=== PATIENT | female | born 1945 | race Native Hawaiian/Other Pacific Islander ===

== ENCOUNTER 2016-10-17 14:32 | Observation (INO) | payer OTHER ==
[2016-10-17 15:00] VITALS: BMI 21.2
--- NOTE | 2016-10-17 15:09 | ED PDOC ---
Arrival/HPI - General Chief Complaint: Chest Pain Time Seen by Provider: 10/17/16 15:08 - History of Present Illness Narrative History of Present Illness (Text): 10/17/16 15:08 Patient is a 71 y/o F with HTN, ESRD on HD, monday and monday, presenting with chest pain. Patient reports that today she had acute onset of chest pressure that lasted 1 hour. She reports that at that time her breathing was difficult. Reports recent travel from [facility]. Denies prior stress test. Past Medical History - Infectious Disease Hx of Infectious Diseases: None - Cardiac Hx Hypertension: Yes - Renal Hx Dialysis: Yes Type of Dialysis Access: R chest [place] Date of Last Dialysis Treatment: 10/14/16 - Psychiatric Hx Substance Use: No - Surgical History Other/Comment: R chest [place] - Anesthesia Hx Anesthesia: Yes Hx Anesthesia Reactions: No Hx Malignant Hyperthermia: No Family/Social History Family/Social History: No Known Family HX Smoking Status: Current Some Days Smoker Hx Alcohol Use: No Hx Substance Use: No Allergies/Home Meds Allergies/Adverse Reactions: Allergies No Known Allergies Allergy (Verified 10/17/16 15:00) Home Medications: Home Meds Medication Instructions Recorded Confirmed Atorvastatin [Lipitor] 1 tab PO HS 10/17/16 10/17/16 Clopidogrel [Plavix] 1 tab PO DAILY 10/17/16 10/17/16 Furosemide [Lasix] 1 tab PO BID 10/17/16 10/17/16 Metoprolol Tartrate [Lopressor] 1 tab PO HS 10/17/16 10/17/16 amLODIPine [Norvasc] 1 tab PO DAILY 10/17/16 10/17/16 Review of Systems - Review of Systems Constitutional: absent: Fatigue, Weight Change, Fevers Respiratory: SOB. absent: Cough, Sputum Cardiovascular: Chest Pain. absent: Palpitations, Edema, Calf Pain, CANALES, Orthopnea, Syncope Gastrointestinal: absent: Abdominal Pain, Constipation, Diarrhea, Nausea, Vomiting Genitourinary Female: absent: Dysuria Musculoskeletal: absent: Arthralgias Neurological: absent: Headache Physical Exam Vital Signs Temp Pulse Pulse Resp BP BP Pulse Ox 10/17/16 16:32 63 23 156/68 H 96 10/17/16 15:31 66 143/68 10/17/16 14:51 98.6 F 68 23 143/68 97 Temperature: Afebrile Blood Pressure: Normal Pulse: Regular Respiratory Rate: Normal Appearance: Positive for: Well-Appearing, Non-Toxic, Comfortable Pain Distress: None Mental Status: Positive for: Alert and Oriented X 3 - Systems Exam Head: Present: Atraumatic, Normocephalic Pupils: Present: PERRL Extroacular Muscles: Present: EOMI Conjunctiva: Present: Normal Neck: Present: Normal Range of Motion Respiratory/Chest: Present: Clear to Auscultation, Good Air Exchange, Other ( dialysis catheter to R chest wall). No: Respiratory Distress, Accessory Muscle Use Cardiovascular: Present: Regular Rate and Rhythm, Normal S1, S2. No: Murmurs Abdomen: No: Tenderness, Distention, Rebound, Guarding Upper Extremity: Present: Normal Inspection Lower Extremity: Present: Normal Inspection Neurological: Present: GCS=15, CN II-XII Intact Medical Decision Making ED Course and Treatment: 10/17/16 15:44 EKG shows NSR at 69 bpm with RBBB. Cxray negative. Trop x 1 negative. D- dimer elevated. Ordered b/l lower extremity duplex and lovenox. Will need v/q scan or cta before dialysis to r/o PE. Spoke to hospitalist to admit to tele observation for chest pain. 10/17/16 17:48 Resident and inpatient attending evaluating at bedside. Patient had prior recent workup at [place] with negative vq scan and negative cardiac workup. Will need dialysis and will consult renal - Lab Interpretations Lab Results: 10/17/16 15:35 10/17/16 15:35 Lab Results 10/17/16 15:35: PT 10.1, INR 0.94, APTT 26.9, D-Dimer, Quantitative 4.66 H 10/17/16 15:35: Sodium 136, Potassium 5.0, Chloride 98, Carbon Dioxide 20 L, Anion Gap 23 H, BUN 67 H, Creatinine 9.5 H*, Est GFR ( Amer) 5, Est GFR ( Non-Af Amer) 4, Random Glucose 115 H, Calcium 7.6 L, Phosphorus 10.7 H, Magnesium 2.8 H, Total Bilirubin 0.5, AST 46 H, ALT 23, Alkaline Phosphatase 88 , Total Creatine Kinase 77, Troponin I 0.02, Total Protein 7.5, Albumin 4.6, Globulin 2.8, Albumin/Globulin Ratio 1.6 10/17/16 15:35: WBC 7.0, RBC 3.71, Hgb 11.4 L, Hct 33.9 L, MCV 91.4, MCH 30.7, MCHC 33.6, RDW 14.0, Plt Count 137, MPV 11.1 H, Gran % 46.3 L, Lymph % (Auto) 32.6, Antelope % (Auto) 9.7 H, Eos % (Auto) 11.0 H, Baso % (Auto) 0.4, Gran # 3.25, Lymph # 2.3, Antelope # 0.7 H, Eos # 0.8 H, Baso # 0.03 - RAD Interpretation Radiology Orders: 10/17/16 15:10 CHEST PORTABLE [RAD] Stat 10/17/16 17:08 DUPLEX LOWER EXTRM VEIN BILAT [US] Stat - Medication Orders Current Medication Orders: Amlodipine Besylate (Norvasc) 10 mg PO DAILY JOSUE Aspirin (Aspirin Chewable) 81 mg PO DAILY JOSUE Atorvastatin Calcium (Lipitor) 20 mg PO HS JOSUE Clopidogrel Bisulfate (Plavix) 75 mg PO DAILY JOSUE Famotidine (Pepcid) 20 mg PO BID JOSUE Furosemide (Lasix) 80 mg PO BID JOSUE Heparin Sodium (Porcine) (Heparin) 5,000 units SC Q12 JOSUE PRN Reason: Protocol Metoprolol Tartrate (Lopressor) 12.5 mg PO HS JOSUE Discontinued Medications Aspirin (Aspirin Chewable) 324 mg PO STAT STA Stop: 10/17/16 15:10 Last Admin: 10/17/16 15:18 Dose: 324 mg Enoxaparin Sodium (Lovenox) 50 mg SC STAT STA PRN Reason: Protocol Stop: 10/17/16 16:41 Last Admin: 10/17/16 16:46 Dose: 50 mg Disposition/Present on Arrival - Present on Arrival Any Indicators Present on Arrival: No History of DVT/PE: No History of Uncontrolled Diabetes: No Urinary Catheter: No History of Decub. Ulcer: No History Surgical Site Infection Following: None - Disposition Have Diagnosis and Disposition been Completed?: Yes Diagnosis: Chest pain Disposition: HOSPITALIZED Disposition Time: 17:50 Patient Plan: Observation Condition: FAIR
--- NOTE | 2016-10-17 15:29 | RAD ---
HISTORY: chest pain COMPARISON: No prior. FINDINGS: LUNGS: No active pulmonary disease. PLEURA: No significant pleural effusion identified, no pneumothorax apparent. CARDIOVASCULAR: Moderate cardiomegaly OSSEOUS STRUCTURES: No significant abnormalities. VISUALIZED UPPER ABDOMEN: Normal. OTHER FINDINGS: Dialysis catheter IMPRESSION: No active disease.
[2016-10-17 15:46] LABS: BASO # 0.03 K/mm3 (0.0-2.0); BASO % 0.4 % (0.0-3.0); EOS # 0.8 (0.0-0.7); GRAN # 3.25 (1.4-6.5); GRAN % 46.3 % (50.0-68.0); HEMOGLOBIN 11.4 g/dL (12.0-16.0); LYMPH # 2.3 (1.2-3.4); LYMPH % 32.6 % (22.0-35.0); MEAN CELL VOLUME 91.4 fl (80.0-105.0); MEAN CORPUSCULAR HEMOGLOBIN 30.7 pg (25.0-35.0); MEAN CORPUSCULAR HGB CONC 33.6 g/dl (31.0-37.0); MEAN PLATELET VOLUME 11.1 fl (7.0-11.0); MONO # 0.7 (0.1-0.6); MONO % 9.7 % (1.0-6.0); PLATELET COUNT 137 10^3/uL (120.0-450.0); RBC 3.71 10^6/uL (3.5-6.1)
[2016-10-17 15:56] LABS: ALB/GLOB RATIO 1.6 (1.1-1.8); ALBUMIN 4.6 g/dL (3.0-4.8); CALCIUM 7.6 mg/dL (8.4-10.5); MAGNESIUM 2.8 mg/dL (1.7-2.2)
[2016-10-17 16:10] LABS: TROPONIN I 0.02 ng/mL
[2016-10-17 16:30] LABS: INR 0.94 (0.93-1.08); PARTIAL THROMBOPLASTIN TIME 26.9 Seconds (23.7-30.8); PROTHROMBIN TIME 10.1 Seconds (9.9-11.8)
[2016-10-17 16:34] LABS: D DIMER 4.66 mg/L FEU (0-0.50)
[2016-10-17] MEDS ORDERED: Enoxaparin 60 mg Syringe SC STA (16:40)
[2016-10-17] MEDS ORDERED: FUROSEMIDE PO SCH (18:00)
--- NOTE | 2016-10-17 18:53 | CP.PCM.HP ---
<CHRIS VENEGAS - Last Filed: 10/17/16 19:12> History of Present Illness - History of Present Illness History of Present Illness: CC: Chest Tightness HPI: Mrs. Mehta is a 71 year old female with a past medical history significant for HTN, anemia and ESRD on HD (2 times per week) who presented to the ED complaining of chest tightness. Patient reports that the tightness began earlier this afternoon and has not subsided since. Patient reports that the pain is intermittent and radiates to her ribs. Patient reports that the pain is worse with deep inhalation and does not endorse any alleviating factors. Of note , patient does not speak argentine and history was provided by patients daughter. Patient is visiting from the [facility] and has been here for one week. She was receiving HD on Tuesdays and in the [facility] through her right chest wall port. Patient was recently seen (10/14) at [facility] for the same complaint and had several imaging and lab studies done. She had a V/Q scan that showed low likelihood for PE, an ECHO that showed normal wall motion with an EF of 65-70% with moderate to severe pulmonary HTN, three serial troponins that were all negative and received dialysis. Patients family was given information on [facility] and agreed to follow up HD at this facility. Currently, patient reports that her chest tightness has not changed in intensity , quality or location. Patient denies any headache, dizziness, fever, chills, shortness of breath, cough, palpitations, abdominal pain, N/V, diarrhea or any urinary symptoms. PMH: ESRD, HTN and Anemia PSH: Denies Family: Father-unspecified "heart problems" Social: Denied tobacco, alcohol or illicit drug use Allergies: Denies Home Medications: Norvasc, Lasix, Lopressor, Plavix and Lipitor Present on Admission - Present on Admission Any Indicators Present on Admission: No Review of Systems - Review of Systems Review of Systems: Please refer to HPI Past Patient History - Infectious Disease Hx of Infectious Diseases: None - Past Social History Smoking Status: Current Some Days Smoker - CARDIAC Hx Hypertension: Yes - RENAL Hx Dialysis: Yes Type of Dialysis Access: R chest [place] Date of Last Dialysis Treatment: 10/14/16 - PSYCHIATRIC Hx Substance Use: No - SURGICAL HISTORY Other/Comment: R chest [place] - ANESTHESIA Hx Anesthesia: Yes Hx Anesthesia Reactions: No Hx Malignant Hyperthermia: No Meds Home Medications: Home Medication List Medication Instructions Recorded Confirmed Type Famotidine [Pepcid] 40 mg PO DAILY #30 tab 10/19/16 Rx Allergies/Adverse Reactions: Allergies Allergy/AdvReac Type Severity Reaction Status Date / Time No Known Allergies Allergy Verified 10/17/16 15:00 Physical Exam - Constitutional Appears: No Acute Distress - Head Exam Head Exam: NORMAL INSPECTION, NORMOCEPHALIC - Eye Exam Eye Exam: EOMI, Normal appearance Pupil Exam: NORMAL ACCOMODATION - ENT Exam ENT Exam: Mucous Membranes Moist, Normal Exam - Neck Exam Neck exam: Positive for: Full Rom, Normal Inspection. Negative for: Lymphadenopathy - Respiratory Exam Respiratory Exam: Chest Wall Tenderness, Clear to Auscultation Bilateral, NORMAL BREATHING PATTERN. absent: Rales, Rhonchi, Wheezes, Respiratory Distress - Cardiovascular Exam Cardiovascular Exam: REGULAR RHYTHM, RRR, +S2, +S4 - GI/Abdominal Exam GI & Abdominal Exam: Normal Bowel Sounds, Soft. absent: Distended, Firm, Guarding, Tenderness - Exam Exam: absent: Bladder Distension - Extremities Exam Extremities exam: Positive for: normal capillary refill, pedal edema, pedal pulses present. Negative for: calf tenderness Additional comments: +1 pitting edema to from feet to mid-calf bilaterally - Neurological Exam Neurological exam: Alert, Oriented x3 - Psychiatric Exam Psychiatric exam: Normal Affect, Normal Mood - Skin Skin Exam: Dry, Intact, Normal Color, Warm Results - Vital Signs Recent Vital Signs: Last Vital Signs Temp 98.6 F 10/17/16 14:51 Pulse 64 10/17/16 18:14 Resp 17 10/17/16 18:14 BP 145/62 10/17/16 18:14 Pulse Ox 95 10/17/16 18:14 - Labs Result Diagrams: 10/17/16 15:35 10/17/16 15:35 Assessment & Plan - Assessment and Plan (Free Text) Assessment: 71 year old female with a past medical history significant for HTN, anemia and ESRD on HD (2 times per week) who presented to the ED complaining of chest tightness Plan: 1. Chest Tightness -full cardiopulmonary workup on 10/14 including ECHO, V/Q scan, TSH and serial troponins found to negative for any acute process -will obtain serial troponins, with the first one done in the ED found to be negative -EKG showed NSR at 69 bpm with RBBB -continue norvasc, lipitor, plavix, lopressor, and ASA -A1C pending -cardiology consulted, all recommendations appreciated 2. ESRD on HD -Bun/Creatinine: 67/9.5 -will obtain HD tomorrow -nephrology consulted, all recommendations appreciated 3. LE Edema -continue Lasix -LE Duplex pending 4. Hypocalcemia -Ca found to be 7.6 (with albumin 4.6) -will obtain measurement post HD tomorrow -consider restarting ca carbonate with meals that was started by nephrology at her last visit after HD 5. GI/DVT Prophylaxis -Protonix/scd's Patient seen and case discussed with attending, Dr. Kelly. - Date & Time Date: 10/17/16 Time: 17:25 Decision To Admit - Pt Status Changed To: Hospital Disposition Of: Observation - . Bed Request Type: Telemetry <Joanna Kelly - Last Filed: 10/19/16 17:01> Results - Vital Signs Recent Vital Signs: Last Vital Signs Temp 98.7 F 10/19/16 12:00 Pulse 61 10/19/16 12:00 Resp 19 10/19/16 12:00 BP 155/66 H 10/19/16 12:00 Pulse Ox 96 10/19/16 05:45 - Labs Result Diagrams: 10/19/16 08:45 10/19/16 08:45 Labs: Laboratory Results - last 24 hr 10/18/16 10/19/16 10/19/16 14:20 08:45 08:45 WBC 5.6 RBC 3.70 Hgb 11.3 L Hct 34.2 L MCV 92.4 MCH 30.5 MCHC 33.0 RDW 13.8 Plt Count 142 MPV 11.5 H Gran % 39.6 L Lymph % (Auto) 37.4 H Butts % (Auto) 9.8 H Eos % (Auto) 12.7 H Baso % (Auto) 0.5 Gran # 2.22 Lymph # 2.1 Butts # 0.6 Eos # 0.7 Baso # 0.03 Sodium 137 Potassium 4.6 Chloride 98 Carbon Dioxide 26 Anion Gap 18 BUN 25 H Creatinine 5.0 H Est GFR ( Amer) 10 Est GFR (Non-Af Amer) 8 Random Glucose 123 H Calcium 8.0 L Total Bilirubin 0.6 AST 29 ALT 24 Alkaline Phosphatase 82 Total Protein 7.1 Albumin 4.2 Globulin 2.9 Albumin/Globulin Ratio 1.4 Hepatitis A IgM Ab Negative Hep Bs Antigen Negative Hep B Core IgM Ab Negative Hepatitis C Antibody Negative Attending/Attestation - Attestation I have personally seen and examined this patient.: Yes I have fully participated in the care of the patient.: Yes I have reviewed all pertinent clinical information: Yes Notes (Text): 10/19/16 14:29 attending note; Patient seen and examined with resident in ER. patient's daughter And [id number] by the bedside. patient is a 71-year-old [place] female admitted with chest pain. patient came to [facility] last week. patient was getting dialysis and [facility]. Has right chest Port-A-Cath. Patient was evaluated in [facility] last week for similar complaints. VQ scan, echocardiogram was normal. The patient has different medical record number. case discussed with conveyor operator DR. Heredia in detail. plan for hemodialysis tomorrow. He will arrange for outpatient Hemodialysis. admit to telemetry. Cardiac enzymes x 3 ordered. cardiology evaluation requested. 10/19/16 16:59 10/19/16 17:01
--- NOTE | 2016-10-17 19:08 | CARD ---
APPROVED REPORT EKG Measurement Heart [id number] <Conclusion> Normal sinus rhythm Right bundle branch block Abnormal ECG
[2016-10-17] MEDS ORDERED: Pneumococcal 23-Valent Vaccine IM ONE (22:40)
[2016-10-18 03:24] LABS: BASO # 0.03 K/mm3 (0.0-2.0); BASO % 0.5 % (0.0-3.0); EOS # 0.8 (0.0-0.7); EOS % 14.1 % (1.5-5.0); GRAN # 2.21 (1.4-6.5); GRAN % 37.2 % (50.0-68.0); HEMOGLOBIN 10.2 g/dL (12.0-16.0); LYMPH # 2.4 (1.2-3.4); LYMPH % 39.6 % (22.0-35.0); MEAN CELL VOLUME 90.9 fl (80.0-105.0); MEAN CORPUSCULAR HEMOGLOBIN 30.1 pg (25.0-35.0); MEAN CORPUSCULAR HGB CONC 33.1 g/dl (31.0-37.0); MEAN PLATELET VOLUME 10.1 fl (7.0-11.0); MONO # 0.5 (0.1-0.6); MONO % 8.6 % (1.0-6.0); PLATELET COUNT 130 10^3/uL (120.0-450.0); RBC 3.39 10^6/uL (3.5-6.1); RED CELL DISTRIBUTION WIDTH 13.9 % (11.5-14.5); WHITE BLOOD COUNT 5.9 10^3/ul (4.5-11.0)
[2016-10-18 04:48] LABS: ALB/GLOB RATIO 1.4 (1.1-1.8); ALBUMIN 3.9 g/dL (3.0-4.8); CALCIUM 7.2 mg/dL (8.4-10.5)
--- NOTE | 2016-10-18 08:28 | CON ---
DATE: 10/17/2016 The patient in room 276, bed #2. REASON FOR CONSULTATION: Chest pain. HISTORY OF PRESENT ILLNESS: A 71-year-old female known hypertensive, known renal failure on dialysis in [facility] twice a week, just came [place] this country a [place] days ago and she said this morning, she had episode of sharp chest pain in her mid chest and it was getting increased by inspiration. She also gets pain in the epigastrium since one year off and on. The patient denies any history of exertional chest pain in the past. She was recently *------* at [facility] where she had VQ lung scan, which was reported as low probability. She also had an echocardiogram that showed EF 65% to 70% with moderate to severe pulmonary hypertension. The patient now lying flat in bed without any chest pain or shortness of breath or palpitation. The patient does get shortness of breath on exertion and she uses inhalation pump for the last several years. PAST MEDICAL HISTORY: Positive for renal failure, hypertension, anemia and probably COPD. PERSONAL HISTORY: Used to chew tobacco. Denies drinking. ALLERGIES: NO KNOWN ALLERGIES. MEDICATIONS AT HOME: Consisted of Lasix, Norvasc, Lopressor, Plavix, and Lipitor. The patient has port on the right chest for dialysis. PHYSICAL EXAMINATION VITAL SIGNS: Blood pressure 148/65, respiration 20, pulse 65 and temperature 98.6. HEENT: Head is normocephalic. Eyes, pupils normal. Conjunctivae slightly pale. NECK: JVP low. Carotids equal. Thorax: AP diameter normal. LUNGS: Clear. CARDIOVASCULAR: S1 and S2. ABDOMEN: Soft and nontender. No organomegaly. Bowel sounds normal. EXTREMITIES: No clubbing. No cyanosis. LABORATORY DATA: WBC 7.0, hemoglobin 11.4, hematocrit 33.9 and platelet 137. Sodium 136, potassium 5.0, BUN 67, creatinine 9.5, glucose 115, calcium 7.6, phosphorous 10.7 and magnesium 2.8. AST 46, ALT 23. Troponin 0.02. Total protein, albumin and globulin normal. PT/INR normal. PTT normal. The patient's D-dimer 4.66, which is elevated. The patient has VQ lung scan at [facility] which was reported low probability pulmonary embolism. DIAGNOSES: Chest pain, atypical sharp pain which increases with inspiration and now the patient is chest pain free. Renal failure on dialysis, hypertension, possible chronic obstructive pulmonary disease, high cholesterol. The patient is on dialysis. The patient's electrocardiogram shows regular sinus rhythm, right bundle-branch block, epigastric pain. PLAN: The patient already had VQ lung scan at [facility], which was negative with low probability of pulmonary embolism. Already had a echo, which we mentioned in our consult as above with normal ejection fraction. The patient is on aspirin 81 mg daily, heparin 5000 units subq q. 12 hours, furosemide 80 b.i.d., Lipitor 20 daily, metoprolol 12.5 mg p.o. at bedtime, amlodipine 10 mg daily, Pepcid 20 mg b.i.d. and Plavix 75 mg p.o. daily. We will continue present therapy. Please follow with renal for dialysis. The patient's chest x-ray has reported moderate cardiomegaly otherwise clear lung. The patient can do IV Lexiscan scan stress test as an outpatient and the patient also going to have Doppler study of both leg to rule out thrombophlebitis. We will follow with you. Sarah Graves MD
[2016-10-18] MEDS ORDERED: Aminophylline 25 mg/ml Inj ONE (08:48)
--- NOTE | 2016-10-18 10:10 | US ---
HISTORY: Leg pain and swelling. Evaluate for DVT PHYSICIAN(S): Dario Manrique MD. TECHNIQUE: Duplex sonography and color-flow Doppler with graded compression were used to evaluate the deep venous systems of both lower extremities. The exam is somewhat limited by edema. FINDINGS: The visualized deep venous systems of both lower extremities are sonographically normal and compressible. Normal wave forms and augmentation are seen. There is no sonographic evidence for deep venous thrombosis in the visualized segments of both lower extremities. IMPRESSION: No sonographic evidence for deep venous thrombosis in the visualized segments of both lower extremities.
--- NOTE | 2016-10-18 11:22 | PN ---
DATE: 10/18/2016 REASON FOR CONSULTATION: Chest pain. SUBJECTIVE: The patient is lying flat. Daughter is at the bedside. Denies any chest pain today. OBJECTIVE: GENERAL: Not in apparent distress, lying flat on the bed. VITAL SIGNS: As follows, temperature afebrile, heart rate 64, blood pressure 133/54. HEENT: PERRLA. Extraocular muscles intact. NECK: Supple. No carotid bruit. No thyromegaly. CHEST: Clear to auscultation. HEART: S1 and S2 regular. ABDOMEN: Soft. EXTREMITIES: Clubbing and cyanosis negative. LABORATORY DATA: Blood workup as follows: WBC 5.9, hemoglobin 10.8, hematocrit 30.8, platelet count 130. Chemistry shows sodium 132, potassium 5.0, chloride 99, carbon dioxide 69, BUN 72, creatinine 10.4. Troponin 0.01 x3 negative. IMPRESSION: A 71-year-old female started dialysis in the [facility] three times a week and then it switched over to twice a week, who recently came from [facility], admitted to [place] where the V/Q scan was low probability and initiated echocardiography also 65% to 70% [id number] pulmonary hypertension so Far troponin negative; history of hypertension, possible chronic obstructive pulmonary disease. RECOMMENDATIONS: We will get stress test today. Continue dialysis. Further recommendation would be made depending upon hospital course and findings of work up . We will follow with you. Thank you Dr. Kelly for providing us the opportunity in taking care of the patient. Sarah Smith MD [id number]
--- NOTE | 2016-10-18 15:15 | CP.PCM.CON ---
History of Present Illness - History of Present Illness History of Present Illness: PGY-2 Nephrology Consult note for Dr. Mcgee 71 yo female with PMH of HTN, anemia, and ESRD on HD presented with chest tightness. Patient states that she has had chest tight for about 1 hour. She reports previous episodes. Patient recent came from the [facility] where she was receiving HD for about 1 year via right chest port. She was recently in [place] where she received HD last Monday. patient is scheduled for HD outpatient on Monday. She denies any current chest pain, fever, chills, dizziness, sob, palpitations, n/v, dysuria. PMH: ESRD, HTN and Anemia PSH: Denies Family: Father-unspecified "heart problems" Social: Denied tobacco, alcohol or illicit drug use Allergies: Denies Review of Systems - Constitutional Constitutional: absent: Chills, Fever, Headache - EENT Eyes: absent: Blurred Vision, Change in Vision - Cardiovascular Cardiovascular: absent: Chest Pain, Diaphoresis, Dyspnea, Leg Edema - Respiratory Respiratory: absent: Cough, Dyspnea, Hemoptysis - Gastrointestinal Gastrointestinal: absent: Abdominal Pain, Constipation, Diarrhea, Nausea, Vomiting - Genitourinary Genitourinary: absent: Dysuria, Hematuria - Musculoskeletal Musculoskeletal: absent: Muscle Weakness, Numbness, Tingling - Integumentary Integumentary: absent: Skin Ulcer, Wounds, Jaundice - Hematologic/Lymphatic Hematologic: absent: Easy Bleeding, Easy Bruising Past Patient History - Infectious Disease Hx of Infectious Diseases: None - Past Social History Smoking Status: Former Smoker - CARDIAC Hx Hypercholesterolemia: Yes Hx Hypertension: Yes Hx Peripheral Edema: Yes (+1 pitting edema feet to mid calf b/l) - RENAL Date of Last Dialysis Treatment: 10/14/16 - HEMATOLOGICAL/ONCOLOGICAL Hx Anemia: Yes - INTEGUMENTARY Other/Comment: bruises easily - MUSCULOSKELETAL/RHEUMATOLOGICAL Hx Falls: No - PSYCHIATRIC Hx Substance Use: No - SURGICAL HISTORY Other/Comment: R chest [place] - ANESTHESIA Hx Anesthesia: Yes Hx Anesthesia Reactions: No Hx Malignant Hyperthermia: No Meds Allergies/Adverse Reactions: Allergies Allergy/AdvReac Type Severity Reaction Status Date / Time No Known Allergies Allergy Verified 10/17/16 15:00 - Medications Medications: Current Medications Amlodipine Besylate (Norvasc) 10 mg PO DAILY [facility] Last Admin: 10/18/16 11:43 Dose: 10 mg Aspirin (Aspirin Chewable) 81 mg PO DAILY [facility] Last Admin: 10/18/16 11:04 Dose: 81 mg Atorvastatin Calcium (Lipitor) 20 mg PO HS [facility] Last Admin: 10/17/16 22:00 Dose: 20 mg Calcium Acetate (Phoslo) 1,334 mg PO WM [facility] Last Admin: 10/18/16 11:07 Dose: 1,334 mg Clopidogrel Bisulfate (Plavix) 75 mg PO DAILY [facility] Last Admin: 10/18/16 11:43 Dose: Not Given Famotidine (Pepcid) 20 mg PO BID [facility] Last Admin: 10/18/16 11:04 Dose: 20 mg Furosemide (Lasix) 80 mg PO BID [facility] Last Admin: 10/18/16 11:04 Dose: Not Given Heparin Sodium (Porcine) (Heparin) 5,000 units SC Q12 [facility] PRN Reason: Protocol Last Admin: 10/18/16 11:04 Dose: Not Given Metoprolol Tartrate (Lopressor) 12.5 mg PO [facility] Last Admin: 10/17/16 22:00 Dose: 12.5 mg Physical Exam - Constitutional Appears: Well, No Acute Distress - Head Exam Head Exam: ATRAUMATIC, NORMOCEPHALIC - Eye Exam Eye Exam: Normal appearance - ENT Exam ENT Exam: Mucous Membranes Moist - Respiratory Exam Respiratory Exam: Clear to Auscultation Bilateral, NORMAL BREATHING PATTERN. absent: Decreased Breath Sounds, Rales, Rhonchi, Wheezes, Respiratory Distress - Cardiovascular Exam Cardiovascular Exam: REGULAR RHYTHM, +S1, +S2. absent: Tachycardia, Systolic Murmur - GI/Abdominal Exam GI & Abdominal Exam: Normal Bowel Sounds, Soft. absent: Distended, Firm, Guarding, Tenderness - Extremities Exam Extremities exam: Positive for: normal inspection. Negative for: pedal edema - Neurological Exam Neurological exam: Alert, Oriented x3 - Skin Skin Exam: Dry, Intact, Normal Color, Warm Results - Vital Signs Recent Vital Signs: Last Vital Signs Temp 98.4 F 10/18/16 11:49 Pulse 65 10/18/16 11:49 Resp 18 10/18/16 11:49 BP 180/76 H 10/18/16 11:49 Pulse Ox 98 10/18/16 06:00 - Labs Result Diagrams: 10/18/16 03:10 10/18/16 03:10 Labs: Laboratory Results - last 24 hr 10/17/16 10/18/16 10/18/16 21:50 03:10 03:10 WBC 5.9 RBC 3.39 L Hgb 10.2 L Hct 30.8 L MCV 90.9 MCH 30.1 MCHC 33.1 RDW 13.9 Plt Count 130 MPV 10.1 Gran % 37.2 L Lymph % (Auto) 39.6 H [place] % (Auto) 8.6 H Eos % (Auto) 14.1 H Baso % (Auto) 0.5 Gran # 2.21 Lymph # 2.4 [place] # 0.5 Eos # 0.8 H Baso # 0.03 Sodium Potassium Chloride Carbon Dioxide Anion Gap BUN Creatinine Est GFR ( Amer) Est GFR (Non-Af Amer) Random Glucose Calcium Total Bilirubin AST ALT Alkaline Phosphatase Troponin I 0.01 D 0.01 Total Protein Albumin Globulin Albumin/Globulin Ratio 10/18/16 03:10 WBC RBC Hgb Hct MCV MCH MCHC RDW Plt Count MPV Gran % Lymph % (Auto) [place] % (Auto) Eos % (Auto) Baso % (Auto) Gran # Lymph # [place] # Eos # Baso # Sodium 136 Potassium 5.2 H Chloride 99 Carbon Dioxide 16 L Anion Gap 26 H BUN 72 H Creatinine 10.4 H* Est GFR ( Amer) 4 Est GFR (Non-Af Amer) 4 Random Glucose 112 H Calcium 7.2 L Total Bilirubin 0.4 AST 26 ALT 23 Alkaline Phosphatase 82 Troponin I Total Protein 6.6 Albumin 3.9 Globulin 2.7 Albumin/Globulin Ratio 1.4 Assessment & Plan - Assessment and Plan (Free Text) Assessment: 71 year old female with a past medical history significant for HTN, anemia and ESRD on HD who presented to the ED complaining of chest tightness. nephrology was consulted for HD. Plan: 1. ESRD on HD - will receive HD today for hyperkalemia and metabolic acidosis - she is scheduled fro outpatient dialysis tomorrow 2. hyperphosphotemia - P was 10.7 - start phoslo twice a week - cont to monitor 2. Chest Tightness - full cardiopulmonary workup on 10/14 including ECHO, V/Q scan, TSH and serial troponins found to negative for any acute process - serial troponins neg times3 - EKG showed NSR at 69 bpm with RBBB - continue norvasc, lipitor, plavix, lopressor, and ASA - A1C pending - cardiology consulted - follow up stress test results 3. LE Edema -continue Lasix -LE Duplex negative for DVTs
--- NOTE | 2016-10-18 15:56 | CARD ---
APPROVED REPORT Protocol: LEXISCAN Test Type: Lexiscan Sestamibi Stress Test Attending Physician: Dr. Sarah Smith Referring Physician: Dr. Joanna Kelly Test Indications: Chest Pain Height:4 ft 8 in Weight:94lbs Medications: Norvasc,Aspirin,Lipitor,Plavix, Pepcid,Lasix,Heparin, Metoprolol Medical History: 71 y/o female. Hx of chest pain,hypertension. Target HR: 147 bpm Resting ECG: NSR RBBB Resting Heart Rate: 62 bpm Resting Blood Pressure: 160/60mmHg Submaximum (85%): 125 bpm PROCEDURE Pharmacologic stress testing was performed using 0.4mg per 5ml of regadenoson given intravenously over 7-10 seconds. Reversal agent aminophyline 100 mg, given intravenously for Nausea. POST EXERCISE Reason for Termination: Protocol completed Target HR: No Max HR: 60 bpm 51% of Maximum Predicted HR: 147 bpm Exercise duration: 00:30 min:sec, 0 Stage Exercise capacity: 1.0METs Max Blood Pressure: 180/70mmHg Blood Pressure response to exercise: normal resting BP - appropriate response Heart Rate response to exercise: appropriate Chest Pain: No, none Angina index: 0 Arrhythmia: No, none ST Change: No, none from base line Deviation: 0 mm INTERPRETATION Stress EKG Conclusion: Negative IV Lexiscan for Ischemia and for chest pain, Nuclear scan to follow. Signed by Sarah Smith Electronically Approved: 10/18/2016 10:17:05 EXAM: Myocardial Perfusion REST/STRESS Stress Test Type: Pharmacologic Imaging Protocol Rest Spect myocardial perfusion imaging was performed in supine position 50 minutes following the injection of 10.4 mCi of Tc-99 Myoview. At peak stress, the patient was injected intravenously with 30.6mCi of Tc-99 tetrofosmin after an infusion time of 0 minutes and 10 seconds. Gated Stress Spect was performed 65 minutes after intravenous Tc-99 Myoview injection. The images were gated to evaluate regional wall motion and calculate ventricular ejection fraction.Images were reconstructed using backfilter projection method in short horizontal and verticle long axis. Spect slices were generated. LV Perfusion The quality of the study is good. The left ventricle is normal in size. The right ventricle is unremarkable. The lung uptake is normal. The distribution of tracer reveals mildly and diffusely decreased perfusion involving anterior wall on the stress study. The remainder of the LV myocardium is unremarkable. The rest myocardial perfusion study shows no significant change. Wall Motion Wall motion study shows good contractility of the left ventricle. LVEF = 61%. Conclusion 1. Essentially normal SPECT myocardial perfusion study. 2. Fixed, anterior defect is most likely due to breast attenuation. 3. Normal gated wall motion of the left ventricle.
--- NOTE | 2016-10-18 19:22 | CP.PCM.PN ---
<CHRIS VENEGAS - Last Filed: 10/18/16 19:14> Subjective - Date & Time of Evaluation Date of Evaluation: 10/18/16 Time of Evaluation: 06:30 - Subjective Subjective: MEDICINE PROGRESS NOTE: Pt seen and assessed at bedside. Pt had no new complaints. Pt denies any headache, dizziness, fever, chills, abdominal pain, N/V, diarrhea or any urinary symptoms. Objective - Vital Signs/Intake and Output Vital Signs (last 24 hours): Temp Pulse Resp BP Pulse Ox 98.4 F 75 18 180/76 H 98 10/18/16 11:49 10/18/16 18:00 10/18/16 11:49 10/18/16 11:49 10/18/16 06:00 Intake and Output: 10/18/16 10/19/16 18:59 06:59 Intake Total 120 Balance 120 - Medications Medications: Current Medications Amlodipine Besylate (Norvasc) 10 mg PO DAILY [facility] Last Admin: 10/18/16 11:43 Dose: 10 mg Aspirin (Aspirin Chewable) 81 mg PO DAILY [facility] Last Admin: 10/18/16 11:04 Dose: 81 mg Atorvastatin Calcium (Lipitor) 20 mg PO HS [facility] Last Admin: 10/17/16 22:00 Dose: 20 mg Calcium Acetate (Phoslo) 1,334 mg PO WM [facility] Last Admin: 10/18/16 17:09 Dose: Not Given Clopidogrel Bisulfate (Plavix) 75 mg PO DAILY [facility] Last Admin: 10/18/16 11:43 Dose: Not Given Famotidine (Pepcid) 20 mg PO BID [facility] Last Admin: 10/18/16 17:09 Dose: Not Given Furosemide (Lasix) 80 mg PO BID [facility] Last Admin: 10/18/16 17:08 Dose: Not Given Heparin Sodium (Porcine) (Heparin) 5,000 units SC Q12 [facility] PRN Reason: Protocol Last Admin: 10/18/16 11:04 Dose: Not Given Metoprolol Tartrate (Lopressor) 12.5 mg PO HS [facility] Last Admin: 10/17/16 22:00 Dose: 12.5 mg - Labs Labs: 10/18/16 03:10 10/18/16 03:10 PT 10.1 Seconds (9.9-11.8) 10/17/16 15:35 INR 0.94 (0.93-1.08) 10/17/16 15:35 APTT 26.9 Seconds (23.7-30.8) 10/17/16 15:35 - Constitutional Appears: No Acute Distress - Head Exam Head Exam: ATRAUMATIC, NORMOCEPHALIC - Eye Exam Eye Exam: EOMI, Normal appearance, PERRL - ENT Exam ENT Exam: Mucous Membranes Moist, Normal Exam - Neck Exam Neck Exam: Full ROM. absent: Lymphadenopathy - Respiratory Exam Respiratory Exam: Chest Wall Tenderness, Clear to Ausculation Bilateral. absent : Rales, Rhonchi, Wheezes, Respiratory Distress - Cardiovascular Exam Cardiovascular Exam: REGULAR RHYTHM, RRR, +S1, +S2 - GI/Abdominal Exam GI & Abdominal Exam: Soft, Normal Bowel Sounds. absent: Distended, Firm, Guarding, Tenderness - Exam Exam: absent: Bladder Distension - Extremities Exam Extremities Exam: Normal Capillary Refill, Pedal Edema. absent: Calf Tenderness Additional comments: +1 pitting edema to from feet to mid-calf bilaterally - Neurological Exam Neurological Exam: Alert, Awake - Psychiatric Exam Psychiatric exam: Normal Affect, Normal Mood - Skin Skin Exam: Dry, Intact, Normal Color, Warm Assessment and Plan - Assessment and Plan (Free Text) Assessment: 71 year old female with a past medical history significant for HTN, anemia and ESRD on HD (2 times per week) who presented to the ED complaining of chest tightness Plan: 1. Chest Tightness -full cardiopulmonary workup on 10/14 including ECHO, V/Q scan, TSH and serial troponins found to negative for any acute process -nuclear stress test normal; can have outpatient IV lexiscan stress test per cardio -serial troponins negative x3 -EKG showed NSR at 69 bpm with RBBB -continue norvasc, lipitor, plavix, lopressor, and ASA -A1C 5.5 -cardiology consulted, all recommendations appreciated 2. ESRD on HD -Bun/Creatinine: 72/10.4 -had 210 minutes of HD today -patient set up and approved for outpatient HD at [facility] on [address] [place] [address] in [place] -nephrology consulted, all recommendations appreciated 3. Hyperphosphotemia -Phosphorus was 10.7 -start phoslo twice a week, per nephro -continue to monitor 4. LE Edema -continue Lasix -LE Duplex showed no DVT's 5. GI/DVT Prophylaxis -Protonix/scd's Patient seen and case discussed with attending, Dr. Denisha Bloom. <Denisha Bloom - Last Filed: 10/19/16 16:56> Objective - Vital Signs/Intake and Output Vital Signs (last 24 hours): Temp Pulse Resp BP Pulse Ox 98.7 F 61 19 155/66 H 96 10/19/16 12:00 10/19/16 12:00 10/19/16 12:00 10/19/16 12:00 10/19/16 05:45 Intake and Output: 10/19/16 10/19/16 06:59 18:59 Intake Total 240 Balance 240 - Labs Labs: 10/19/16 08:45 10/19/16 08:45 PT 10.1 Seconds (9.9-11.8) 10/17/16 15:35 INR 0.94 (0.93-1.08) 10/17/16 15:35 APTT 26.9 Seconds (23.7-30.8) 10/17/16 15:35 Attending/Attestation - Attestation I have personally seen and examined this patient.: Yes I have fully participated in the care of the patient.: Yes I have reviewed all pertinent clinical information, including history, physical exam and plan: Yes Notes (Text): I have seen and examined the patient at bedside. Agree with the above note with the following additions/ exceptions: Briefly this is 71 year old female with history of HTN, anemia, ESRD on HD who presented with chest tightness which has resolved. Serial troponins and EKG not suggestive of ischemia. Cardio recommended outpatient stress test. Patient underwent HD today as per nephro. CM and supply chain analyst are trying to set up outpatient HD. Start phoslo and continue lasix. Upon discharge patient will follow up with Dr Mcgee. Dr Denisha Bloom
[2016-10-19 05:48] VITALS: O2SAT 96
--- NOTE | 2016-10-19 08:12 | CP.PCM.PN ---
Subjective - Date & Time of Evaluation Date of Evaluation: 10/19/16 Time of Evaluation: 08:09 - Subjective Subjective: PGY-2 Nephrology progress note for Dr. Mcgee Patient seen and examined at bedside. No acute distress. Patient does not speak [place], family at bedside to translate. Patient states she slept all night. She denies any chest pain, fever, chills, abd pain, n/v. Patient states she feels better after dialysis. Objective - Vital Signs/Intake and Output Vital Signs (last 24 hours): Temp Pulse Resp BP Pulse Ox 97.6 F 59 L 20 141/64 96 10/19/16 05:45 10/19/16 05:45 10/19/16 05:45 10/19/16 05:45 10/19/16 05:45 Intake and Output: 10/19/16 10/19/16 06:59 18:59 Intake Total 240 Balance 240 - Medications Medications: Current Medications Amlodipine Besylate (Norvasc) 10 mg PO DAILY [facility] Last Admin: 10/18/16 11:43 Dose: 10 mg Aspirin (Aspirin Chewable) 81 mg PO DAILY [facility] Last Admin: 10/18/16 11:04 Dose: 81 mg Atorvastatin Calcium (Lipitor) 20 mg PO HS [facility] Last Admin: 10/18/16 21:23 Dose: 20 mg Calcium Acetate (Phoslo) 1,334 mg PO WM [facility] Last Admin: 10/18/16 17:09 Dose: Not Given Clopidogrel Bisulfate (Plavix) 75 mg PO DAILY [facility] Last Admin: 10/18/16 11:43 Dose: Not Given Famotidine (Pepcid) 20 mg PO BID [facility] Last Admin: 10/18/16 17:09 Dose: Not Given Furosemide (Lasix) 80 mg PO BID [facility] Last Admin: 10/18/16 17:08 Dose: Not Given Heparin Sodium (Porcine) (Heparin) 5,000 units SC Q12 [facility] PRN Reason: Protocol Last Admin: 10/18/16 21:25 Dose: 5,000 units Metoprolol Tartrate (Lopressor) 12.5 mg PO HS [facility] Last Admin: 10/18/16 21:23 Dose: 12.5 mg - Labs Labs: 10/18/16 03:10 10/18/16 03:10 PT 10.1 Seconds (9.9-11.8) 10/17/16 15:35 INR 0.94 (0.93-1.08) 10/17/16 15:35 APTT 26.9 Seconds (23.7-30.8) 10/17/16 15:35 - Constitutional Appears: Well, No Acute Distress - Head Exam Head Exam: ATRAUMATIC, NORMOCEPHALIC - Eye Exam Eye Exam: EOMI, Normal appearance - ENT Exam ENT Exam: Mucous Membranes Moist - Respiratory Exam Respiratory Exam: Clear to Ausculation Bilateral, NORMAL BREATHING PATTERN. absent: Decreased Breath Sounds, Rales, Rhonchi, Wheezes, Respiratory Distress - Cardiovascular Exam Cardiovascular Exam: REGULAR RHYTHM, +S1, +S2. absent: Tachycardia, Murmur - GI/Abdominal Exam GI & Abdominal Exam: Soft, Normal Bowel Sounds. absent: Distended, Firm, Guarding, Tenderness - Back Exam Back Exam: absent: CVA tenderness (L), CVA tenderness (R) - Neurological Exam Neurological Exam: Alert, Awake, Oriented x3 - Skin Skin Exam: Dry, Intact, Normal Color, Warm Assessment and Plan - Assessment and Plan (Free Text) Assessment: 71 year old female with a past medical history significant for HTN, anemia and ESRD on HD who presented to the ED complaining of chest tightness. nephrology was consulted for ESRD on HD. Plan: 1. ESRD on HD - will receive HD yesterday for hyperkalemia and metabolic acidosis - she is scheduled for outpatient dialysis today 2. hyperphosphotemia - cont phoslo twice a week - cont to monitor 3. Chest Tightness - full cardiopulmonary workup on 10/14 including ECHO, V/Q scan, TSH and serial troponins found to be negative for any acute process - serial troponins neg times 3 - EKG showed NSR at 69 bpm with RBBB - continue norvasc, lipitor, plavix, lopressor, and ASA - Hgb A1C is 5.5 - cardiology consulted - stress test was within normal limits 4. LE Edema - improved - continue Lasix - LE Duplex negative for DVTs
[2016-10-19 09:26] LABS: BASO # 0.03 K/mm3 (0.0-2.0); BASO % 0.5 % (0.0-3.0); EOS # 0.7 (0.0-0.7); EOS % 12.7 % (1.5-5.0); GRAN # 2.22 (1.4-6.5); GRAN % 39.6 % (50.0-68.0); HEMOGLOBIN 11.3 g/dL (12.0-16.0); LYMPH # 2.1 (1.2-3.4); LYMPH % 37.4 % (22.0-35.0); MEAN CELL VOLUME 92.4 fl (80.0-105.0); MEAN CORPUSCULAR HEMOGLOBIN 30.5 pg (25.0-35.0); MEAN PLATELET VOLUME 11.5 fl (7.0-11.0); MONO # 0.6 (0.1-0.6); MONO % 9.8 % (1.0-6.0); PLATELET COUNT 142 10^3/uL (120.0-450.0); RED CELL DISTRIBUTION WIDTH 13.8 % (11.5-14.5); WHITE BLOOD COUNT 5.6 10^3/ul (4.5-11.0)
[2016-10-19 09:36] LABS: ALB/GLOB RATIO 1.4 (1.1-1.8); ALBUMIN 4.2 g/dL (3.0-4.8)
[2016-10-19 11:47] LABS: HEPATITIS B SURFACE AG NEGATIVE (NEGATIVE)
[2016-10-19 11:53] LABS: HEPATITIS A IGM NEGATIVE (NEGATIVE)
[2016-10-19 11:54] LABS: HEPATITIS B CORE AB NEGATIVE (NEGATIVE)
[2016-10-19 12:04] LABS: HEPATITIS C ANTIBODY NEGATIVE (NEGATIVE)
[2016-10-19 12:40] VITALS: BP 155/66; PULSE 61; RESP 19; TEMP 98.7
[2016-10-19] MEDS ORDERED: Pneumococcal 23-Valent Vaccine IM ONE (13:01)
--- NOTE | 2016-10-19 13:58 | PN ---
DATE: 10/19/2016 REASON FOR CONSULTATION: Chest pain. SUBJECTIVE: The patient having breakfast with the daughter at the bedside. Denies any chest pain, shortness of breath, or any palpitation. OBJECTIVE: GENERAL: Sitting in the bedside, not in apparent distress, not in pain. VITAL SIGNS: As follows: Temperature afebrile, heart rate 60, and blood pressure 118/50. HEENT: PERRLA. Extraocular muscles intact. NECK: Supple. No carotid bruit. No thyromegaly. CHEST: Clear to auscultation. HEART: S1 and S2 regular. ABDOMEN: Soft. EXTREMITIES: Clubbing and cyanosis negative. LABORATORY DATA: Blood workup as follows: WBC 5.9, hemoglobin 10.8, hematocrit 30.8, and platelet count 130. Chemistry shows sodium 132, potassium 5.2, chloride 99, carbon dioxide , BUN 72, and creatinine 10.4. Troponin 0.01 x1 negative. Protein 6.5, albumin 3.9 and albumin-globulin ratio 1.4. IMPRESSION: This 71-year-old female recently came from [facility] admitted with the chest pain and started on dialysis recently prior to coming here, initially started 3 days a week in [facility] and later on changed to twice, admitted here with the chest pain and shortness of breath. Recently, the patient had V/Q scan done with low probability , had an initial echo done, which showed ejection fraction of 65% to 70%, [id number] pulmonary hypertension. Troponin remains negative; no evidence of acute myocardial infarction. Yesterday, the patient underwent a stress test and myocardial perfusion study, There was essentially a normal myocardial perfusion study, no evidence of ischemia, Ejection fraction of 61%. RECOMMENDATIONS: Aggressive medical treatment. Continue Baby aspirin. Continue atorvastatin. Continue metoprolol 12.5 mg. We will discontinue telemetry. I am not sure why the patient is on Plavix at home. We will check with the family; otherwise, we can discontinue it if no valid reason to continue. Thank you Dr. Kelly for providing us the opportunity in taking care of Mehtarohit Weber. Sarah Smith MD
--- NOTE | 2016-10-19 19:50 | US ---
PROCEDURE: Upper extremity venous ultrasound HISTORY: Evaluate left superficial venous system for AV fistula placement PHYSICIAN(S): Dario Manrique MD. FINDINGS: Left basilic vein: The left basilic vein at the wrist is small, measuring 1-2 mm. The left basilic vein in the forearm remains small, measuring 2 mm. The left basilic vein at the elbow measures 3 mm. The left basilic vein above the elbow is normal in size, measuring 3-5 mm. Left cephalic vein: The left cephalic vein at the wrist is small, measuring 1-2 mm. The left cephalic vein in the forearm measures 2 mm. The left cephalic vein at the elbow measures 3 mm. The left cephalic vein above the elbow is normal in size and appearance, measuring 3-4 mm. No evidence of thrombus or obstruction is appreciated. IMPRESSION: 1. Left upper extremity superficial venous mapping for AV fistula placement. In the forearms, the superficial veins are small. The cephalic and basilic veins are normal in appearance at the elbow and above the elbow.
== END 2016-10-19 16:12 | disposition home or self-care (01) ==
LOC: ED 14:32 → ERH 17:18 → 2RSO 18:36 → ERH 18:37 → 2RSO 18:40
PROVIDERS: ADMIT Internal Medicine; ATTEND Hospitalist
DX: R07.89 Other chest pain (principal); N18.6 End stage renal disease; I12.0 Hypertensive chronic kidney disease with stage 5 chronic kidney disease or end stage renal disease; I27.2 Other secondary pulmonary hypertension; E87.5 Hyperkalemia; E87.2 Acidosis; I45.10 Unspecified right bundle-branch block; D64.9 Anemia, unspecified; E83.51 Hypocalcemia; Z99.2 Dependence on renal dialysis; Z23 Encounter for immunization
CPT/HCPCS: 36415; 71010; 78452; 80053; 80074; 82550; 83036; 83735; 84100; 84484; 85025; 85378; 85610; 85730; 90732; 93005; 93017; 93970; 93971; 96372; 99285; A9502; G0009; G0378; J1644; J1650

== ENCOUNTER 2017-01-02 10:33 | Inpatient (IN) | payer MEDICAID, OTHER ==
--- NOTE | 2017-01-02 11:08 | ED PDOC ---
Arrival/HPI - General Chief Complaint: GI Problem Time Seen by Provider: 01/02/17 10:58 - History of Present Illness Narrative History of Present Illness (Text): 71F brought from dialysis for vomiting. per daughter she has to stop about 30 minutes early. she also says her BP was both low and high and she was feeling lightheaded and dizzy. denies f/c, cough, sob, cp. Past Medical History - Infectious Disease Hx of Infectious Diseases: None - Reproductive Menopause: Yes - Cardiac Hx Hypertension: Yes Hx Peripheral Edema: Yes (+1 pitting edema feet to mid calf b/l) - Renal Date of Last Dialysis Treatment: 10/14/16 - Hematological/Oncological Hx Anemia: Yes - Integumentary Other/Comment: bruises easily - Musculoskeletal/Rheumatological Hx Falls: No - Psychiatric Hx Substance Use: No - Surgical History Other/Comment: R chest Frederica - Anesthesia Hx Anesthesia: Yes Hx Anesthesia Reactions: No Hx Malignant Hyperthermia: No Family/Social History Family/Social History: Other (nc) Smoking Status: Former Smoker Hx Alcohol Use: No Hx Substance Use: No Allergies/Home Meds Allergies/Adverse Reactions: Allergies paper tape Adverse Reaction (Uncoded 01/02/17 15:02) RASH tegaderm dressing Adverse Reaction (Uncoded 01/02/17 15:02) RASH Home Medications: Home Meds Medication Instructions Recorded Confirmed Atorvastatin [Lipitor] 1 tab PO HS 10/17/16 01/02/17 amLODIPine [Norvasc] 5 mg PO DAILY 10/17/16 01/02/17 Aspirin [Aspirin Chewable] 81 mg PO DAILY 01/02/17 01/02/17 Brimonidine Tartrate [Alphagan P 1 drop RIGHTEYE AMHS 01/02/17 01/02/17 0.1 % Ophth] Calcium Carbonate [Oscal] 500 mg PO TID 01/02/17 01/02/17 Famotidine [Pepcid] 20 mg PO BID 01/02/17 01/02/17 Famotidine [Pepcid] 20 mg PO BID 01/02/17 01/02/17 Furosemide [Lasix] 80 mg PO BID 01/02/17 01/02/17 Timolol [Betimol 5 ml] 1 drop RIGHTEYE BID 01/02/17 01/02/17 Vitamin B Complex [B Complex] 1 each PO DAILY 01/02/17 01/02/17 Review of Systems - Physician Review All systems were reviewed & negative as marked: Yes - Review of Systems Constitutional: absent: Fevers Respiratory: absent: SOB, Cough Cardiovascular: absent: Chest Pain, Edema, Syncope Gastrointestinal: Nausea, Vomiting. absent: Abdominal Pain, Diarrhea Neurological: absent: Headache, Dizziness Physical Exam Vital Signs Reviewed: Yes Vital Signs Temp Pulse Resp BP Pulse Ox 01/02/17 13:29 79 18 149/67 96 01/02/17 11:07 99.8 F H 01/02/17 10:43 98.9 F 94 H 27 H 132/89 95 Appearance: Positive for: Non-Toxic Pain Distress: None Mental Status: Positive for: Alert and Oriented X 3 - Systems Exam Head: Present: Atraumatic Pupils: Present: PERRL Mouth: Present: Moist Mucous Membranes Neck: Present: Normal Range of Motion Respiratory/Chest: Present: Clear to Auscultation. No: Respiratory Distress, Accessory Muscle Use, Wheezes, Rales, Retracting, Rhonchi, Tachypneic Cardiovascular: Present: Regular Rate and Rhythm Abdomen: No: Tenderness, Distention, Peritoneal Signs, Rebound, Guarding Upper Extremity: Present: NORMAL PULSES Lower Extremity: No: Edema Neurological: Present: GCS=15, Motor Func Grossly Intact, Normal Sensory Function, Other (no focal deficits) Medical Decision Making ED Course and Treatment: ecg- nsr 85, rbbb, no stemi disc w Dr Teague who will admit- req RUQ US - Lab Interpretations Lab Results: 01/02/17 11:15 01/02/17 11:00 Lab Results 01/02/17 11:15: pO2 50, VBG pH 7.41, VBG pCO2 48.0, VBG HCO3 30.4 H, VBG Total CO2 31.9 H, VBG O2 Sat (Calc) 89.6 H, VBG Base Excess 4.8 H, VBG Potassium 4.0, Glucose 126 H, Lactate 1.4, FiO2 21.0, Sodium 131.0 L, Chloride 95.0 L, Venous Blood Potassium 4.0 01/02/17 11:15: WBC 9.2 D, RBC 4.09, Hgb 12.1, Hct 36.3, MCV 88.8 D, MCH 29.6 , MCHC 33.3, RDW 14.3, Plt Count 126, MPV 10.4, Gran % 65.1, Lymph % (Auto) 12.0 L, Cooper % (Auto) 7.3 H, Eos % (Auto) 15.4 H, Baso % (Auto) 0.2, Gran # 6.00 , Lymph # 1.1 L, Cooper # 0.7 H, Eos # 1.4 H, Baso # 0.02 01/02/17 11:00: Sodium 133, Potassium 4.1, Chloride 94 L, Carbon Dioxide 28, Anion Gap 15, BUN 18, Creatinine 3.3 H, Est GFR ( Amer) 17, Est GFR (Non- Af Amer) 14, Random Glucose 128 H, Calcium 9.0, Total Bilirubin 1.0, AST 36, ALT 31, Alkaline Phosphatase 73, Troponin I 0.02 D, Total Protein 7.4, Albumin 4.5, Globulin 2.9, Albumin/Globulin Ratio 1.6, Lipase 326 H - RAD Interpretation Radiology Orders: 01/02/17 10:46 CHEST PORTABLE [RAD] Stat 01/02/17 12:27 GALLBLADDER & COMMON DUCT [US] Stat - Medication Orders Current Medication Orders: Albuterol Sulfate (Albuterol 0.083% Inhal Haley (2.5 Mg/3 Ml) Ud) 2.5 mg IH [id number] PRN PRN Reason: Wheezing Amlodipine Besylate (Norvasc) 5 mg PO DAILY [facility] Aspirin (Aspirin Chewable) 81 mg PO DAILY [facility] Atorvastatin Calcium (Lipitor) 20 mg PO HS [facility] Last Admin: 01/02/17 21:33 Dose: 20 mg Calcium Carbonate (Oscal) 500 mg PO TID [facility] Last Admin: 01/02/17 17:48 Dose: 500 mg Clopidogrel Bisulfate (Plavix) 75 mg PO DAILY [facility] Famotidine (Pepcid) 20 mg PO BID [facility] Last Admin: 01/02/17 17:51 Dose: 20 mg Furosemide (Lasix) 80 mg PO BID [facility] Last Admin: 01/02/17 17:50 Dose: 80 mg MAR Blood Pressure Document 01/02/17 17:50 MMC (Rec: 01/02/17 17:50 MMC [id number]) Blood Pressure Blood Pressure (100/60-150/90) 162/72 Heparin Sodium (Porcine) (Heparin) 5,000 units SC Q8 [facility] PRN Reason: Protocol Last Admin: 01/03/17 05:50 Dose: 5,000 units Subcutaneous Administrations Document 01/03/17 05:50 [email or web address] (Rec: 01/03/17 05:50 [email or web address] [id number]) Injection Site MAR Injection Site Left Abdomen Charges for Administration # of Subcutaneous Administrations 1 Levofloxacin/Dextrose (Levaquin 250mg) 250 mg in 50 mls @ 100 mls/hr IVPB Q48H JOSUE Latanoprost (Xalatan Opht) 1 ml OD HS JOSUE Non-Formulary Medication (Dionisio) 1 drop OD TID JOSUE Timolol Maleate (Timoptic 0.5% Ophth Soln) 1 drop OD BID JOSUE Discontinued Medications Albuterol (Ventolin Hfa 90 Mcg/Actuation (8 G)) 1 puff IH [id number] PRN PRN Reason: Wheezing Vancomycin HCl (Vancomycin 1gm) 1 gm in 250 mls @ 167 mls/hr IVPB STAT STA PRN Reason: Protocol Stop: 01/02/17 15:40 Last Admin: 01/02/17 15:40 Dose: 167 mls/hr eMAR Start Stop Document 01/02/17 15:40 MMC (Rec: 01/02/17 15:40 MMC [id number]) Intravenous Solution Start Date 01/02/17 Start Time 15:40 End Date 01/02/17 Piperacillin Sod/Tazobactam Sod (Zosyn 2.25 Gm In 0.9% 100 Ml) 2.25 gm in 100 mls @ 100 mls/hr IVPB STAT STA PRN Reason: Protocol Stop: 01/02/17 15:10 Last Admin: 01/02/17 17:40 Dose: 100 mls/hr eMAR Start Stop Document 01/02/17 17:40 MMC (Rec: 01/02/17 17:41 MMC [id number]) Intravenous Solution Start Date 01/02/17 Start Time 17:40 End Date 01/02/17 End time 18:40 Total Infusion Time 60 Piperacillin Sod/Tazobactam Sod (Zosyn 2.25 Gm In 0.9% 100 Ml) 2.25 gm in 100 mls @ 100 mls/hr IVPB Q6 JOSUE PRN Reason: Protocol Stop: 01/03/17 00:59 Last Admin: 01/03/17 04:03 Dose: 100 mls/hr eMAR Start Stop Document 01/03/17 04:03 [email or web address] (Rec: 01/03/17 04:04 [email or web address] [id number]) Intravenous Solution Start Date 01/03/17 Start Time 04:04 End Date 01/03/17 End time 05:05 Total Infusion Time 61 Non-Formulary Medication (Timolol [Betimol]) 1 drop OD BID JOSUE Non-Formulary Medication (Travatan Eye Drop) 1 drop OD HS JOSUE Pneumococcal Polyvalent Vaccine (Pneumovax 23 Vaccine) 0.5 ml IM .ONCE ONE Stop: 01/02/17 15:25 Disposition/Present on Arrival - Present on Arrival Any Indicators Present on Arrival: No History of DVT/PE: No History of Uncontrolled Diabetes: No Urinary Catheter: No History of Decub. Ulcer: No History Surgical Site Infection Following: None - Disposition Have Diagnosis and Disposition been Completed?: Yes Diagnosis: Near syncope Disposition: HOSPITALIZED Disposition Time: 12:28 Patient Problems: Current Active Problems Problem Status Onset Near syncope Acute Condition: STABLE
--- NOTE | 2017-01-02 11:17 | RAD ---
HISTORY: wheezing COMPARISON: 10/17/2016. FINDINGS: LUNGS: The lungs are well inflated. There is mild pulmonary venous congestion. There is stable position of the right-sided dialysis catheter which terminates in the right atrium. PLEURA: No significant pleural effusion identified, no pneumothorax apparent. CARDIOVASCULAR: There is persistent moderate cardiomegaly. Atherosclerotic aortic arch calcifications are present. OSSEOUS STRUCTURES: No significant abnormalities. VISUALIZED UPPER ABDOMEN: Normal. OTHER FINDINGS: None. IMPRESSION: Persistent moderate cardiomegaly and mild pulmonary venous congestion. The right-sided dialysis catheter terminates in the right atrium.
[2017-01-02 11:29] LABS: VENOUS BLOOD GAS BASE EXCESS 4.8 mmol/L (0.0-2.0); VENOUS BLOOD PH 7.41 (7.32-7.43)
[2017-01-02 11:35] LABS: BASO # 0.02 K/mm3 (0.0-2.0); BASO % 0.2 % (0.0-3.0); EOS # 1.4 (0.0-0.7); EOS % 15.4 % (1.5-5.0); GRAN % 65.1 % (50.0-68.0); HEMATOCRIT 36.3 % (36.0-48.0); LYMPH # 1.1 (1.2-3.4); MEAN CELL VOLUME 88.8 fl (80.0-105.0); MEAN CORPUSCULAR HEMOGLOBIN 29.6 pg (25.0-35.0); MEAN CORPUSCULAR HGB CONC 33.3 g/dl (31.0-37.0); MEAN PLATELET VOLUME 10.4 fl (7.0-11.0); MONO # 0.7 (0.1-0.6); MONO % 7.3 % (1.0-6.0); RED CELL DISTRIBUTION WIDTH 14.3 % (11.5-14.5); WHITE BLOOD COUNT 9.2 10^3/ul (4.5-11.0)
[2017-01-02 11:42] LABS: ALB/GLOB RATIO 1.6 (1.1-1.8); POTASSIUM 4.1 mmol/L (3.6-5.0); TOTAL PROTEIN 7.4 g/dL (5.8-8.3)
[2017-01-02 11:53] LABS: TROPONIN I 0.02 ng/mL
--- NOTE | 2017-01-02 13:41 | US ---
HISTORY: Fever and vomiting COMPARISON: None. TECHNIQUE: Sonographic evaluation of the right upper quadrant of the abdomen. FINDINGS: LIVER: Measures 14.2 cm in length. Normal echogenicity of the liver parenchyma. No mass. No intrahepatic bile duct dilatation. GALLBLADDER: There are no gallstones, wall thickening or pericholecystic fluid. The sonographic Sullivan's. COMMON BILE DUCT: Measures 5.9 mm. No stones. No dilatation. PANCREAS: Unremarkable as visualized. No mass. No ductal dilatation. RIGHT KIDNEY: Measures 7.1 cm in length. Small in size with diffuse increased echogenicity and loss of corticomedullary differentiation. No calculus, mass, or hydronephrosis. There is a 1.9 x 1.3 x 1 point cm cyst in the upper pole. AORTA: No aneurysmal dilatation. IVC: Unremarkable. OTHER FINDINGS: None . IMPRESSION: 1. Small right kidney with evidence of chronic medical renal disease. 2. No cholelithiasis or biliary dilatation.
[2017-01-02] MEDS ORDERED: Vancomycin 1gm in NS 250ml 1 GM/250 ML BAG IVPB STA (14:11)
[2017-01-02] MEDS ORDERED: Piperacillin/Tazobact 2.25gm 2.25 GM/100 ML BAG IVPB STA (14:11)
--- NOTE | 2017-01-02 14:52 | CP.PCM.HP ---
<MOSES SILVA - Last Filed: 01/02/17 15:03> History of Present Illness - History of Present Illness History of Present Illness: CC: Low blood pressure, vomiting during HD Pt is a 71 yo female with PMH of asthma, HLD, ESRD, HTN, and anemia presents to [facility] [place] due to hypotension, nausea, and vomiting x3 during HD today. Pt had completed 20% of dialysis when symptoms began. Pt states that BP went as high as 200's and as low as 106. Pt also c/o of midsternal chest pain without radiation, SOB, alternating fever and chills. At that time patient was advised to proceed to ED. Pt has being going to dialysis for over 1 year on MWF. Pt denies any prior symptomatic episodes during dialysis. At time of examination, pt denies CP, SOB, tenderness at HD catheter site, abdominal pain, diarrhea, constipation, dysuria, CAMPBELL, dizziness, or fatigue. PMH: Asthma, HLD, ESRD on HD (MWF), HTN, anemia Surg: Denied All: NKDA SH: Denied tobacco, EtOH, and illicit drug use. Lives at home with daughter. FHx: Unknown cardiac history in father Present on Admission - Present on Admission Any Indicators Present on Admission: No Review of Systems - Review of Systems Review of Systems: 12 point ROS was reviewed and is negative other than what is stated in HPI. Past Patient History - Infectious Disease Hx of Infectious Diseases: None - Past Social History Smoking Status: Former Smoker - CARDIAC Hx Hypertension: Yes Hx Peripheral Edema: Yes (+1 pitting edema feet to mid calf b/l) - RENAL Date of Last Dialysis Treatment: 10/14/16 - HEMATOLOGICAL/ONCOLOGICAL Hx Anemia: Yes - INTEGUMENTARY Other/Comment: bruises easily - MUSCULOSKELETAL/RHEUMATOLOGICAL Hx Falls: No - PSYCHIATRIC Hx Substance Use: No - SURGICAL HISTORY Other/Comment: R chest Erath - ANESTHESIA Hx Anesthesia: Yes Hx Anesthesia Reactions: No Hx Malignant Hyperthermia: No Meds Allergies/Adverse Reactions: Allergies Allergy/AdvReac Type Severity Reaction Status Date / Time paper tape AdvReac RASH Uncoded 01/02/17 15:02 tegaderm dressing AdvReac RASH Uncoded 01/02/17 15:02 Physical Exam - Constitutional Appears: No Acute Distress - Head Exam Head Exam: ATRAUMATIC, NORMOCEPHALIC - Eye Exam Eye Exam: EOMI, Normal appearance, PERRL - ENT Exam ENT Exam: Mucous Membranes Moist - Neck Exam Neck exam: Positive for: Full Rom, Normal Inspection. Negative for: Lymphadenopathy, Tenderness, Thyromegaly Additional comments: No JVD - Respiratory Exam Respiratory Exam: Clear to Auscultation Bilateral. absent: Accessory Muscle Use , Rales, Rhonchi, Wheezes, Respiratory Distress - Cardiovascular Exam Cardiovascular Exam: RRR, +S1, +S2. absent: Diastolic murmur, Gallop, Rubs, Systolic Murmur - GI/Abdominal Exam GI & Abdominal Exam: Soft. absent: Distended, Guarding, Mass, Rebound, Rigid, Tenderness - Neurological Exam Neurological exam: Alert, CN II-XII Intact, Oriented x3 - Psychiatric Exam Psychiatric exam: Normal Affect, Normal Mood - Skin Skin Exam: Dry, Intact, Normal Color, Warm Additional comments: HD catheter right chest wall. Surrounding skin non-erythematous and not TTP. Results - Vital Signs Recent Vital Signs: Last Vital Signs Temp 99.8 F H 01/02/17 11:07 Pulse 79 01/02/17 13:29 Resp 18 01/02/17 13:29 BP 149/67 01/02/17 13:29 Pulse Ox 96 01/02/17 13:29 - Labs Result Diagrams: 01/02/17 11:15 01/02/17 11:00 Assessment & Plan - Assessment and Plan (Free Text) Assessment: 71 yo female with PMH of asthma, HLD, ESRD on HD, HTN, and anemia presented with hypotension and vomiting at HD will be admitted for evaluation and treatment of fever and hypotension. Plan: 1. Fever - Will monitor clinically and workup for possible source of fever - CXR showed cardiomegaly, mild pulmonary venous congestion - RUQ US showed no active disease - No leukocytosis - F/u procalcitonin, UA, blood and urine cultures - Vanco 1gm IVPB once - Zosyn 2.25 IVPB q6h 2. Chest Pain - Cardiology consulted - EKG showed NSR, RBBB (unchanged from last EKG 10/17/16) - Stress test on 10/18/16 negative for ischemia and chest apin - Troponin negative x1, f/u trend x2 3. ESRD on HD - Nephro consulted - Cr 3.3 - HD MWF - Renal diet - Cont home medications 4. Hypertension - Normotensive on admission - Cont Norvasc 10 mg PO daily - Hold for SBP<100, DBP<60 5. Asthma - Ventolin HFA prn 6. HLD - Lipitor 20 mg daily GI/DVT PPx - Heparin - Pepcid Pt seen and discussed in detail with Dr. Teague. Mukul Silva, PGY1 <Sarah Teague - Last Filed: 01/03/17 16:16> Results - Vital Signs Recent Vital Signs: Last Vital Signs Temp 98.7 F 01/03/17 08:49 Pulse 61 01/03/17 09:33 Resp 18 01/03/17 08:49 BP 165/65 H 01/03/17 09:33 Pulse Ox 95 01/03/17 08:49 - Labs Result Diagrams: 01/03/17 06:00 01/03/17 06:00 Attending/Attestation - Attestation I have personally seen and examined this patient.: Yes I have fully participated in the care of the patient.: Yes I have reviewed all pertinent clinical information: Yes Notes (Text): 01/03/17 16:13 Patient was seen and examined with senior medical writer. Agreed with resident assessment and plan. 71 yo female with PMH of asthma, HLD, ESRD, HTN, and anemia presents to [facility] [place] due to episode of hypotension, nausea, and vomiting during hemodialysis.Patient hypotension is resolved.She is having 99.8 F rectal fever.The etiology of fever is not clear. Chest X ray is negative for Pneumonia.UA is negative for UTI. Right upper quadrant USG is negative for acute cholycysystitis.We will follow up blood cultures. Management plan was discussed in detail with patient and daughter in detail. Education was provided.
[2017-01-02] MEDS ORDERED: Albuterol HFA 90 mcg/actuation (8 g) IH PRN (15:15)
[2017-01-02 15:23] VITALS: BMI 21.0
[2017-01-02] MEDS ORDERED: Influenza Vaccine 60 mcg/0.5 mL SYR (4YR UP) IM ONE (15:24)
[2017-01-02] MEDS ORDERED: Pneumococcal 23-Valent Vaccine IM ONE (15:24)
[2017-01-02] MEDS ORDERED: Albuterol 0.083% Inhal Sol (2.5 mg/3 mL) UD IH PRN (15:57)
[2017-01-02 17:37] LABS: TROPONIN I 0.03 ng/mL
[2017-01-02] MEDS ORDERED: Non Formulary Medication (Timolol [Betimol] 1 DROP) OD SCH (18:00)
[2017-01-02] MEDS ORDERED: TRAVATAN EYE OD SCH (22:00)
--- NOTE | 2017-01-02 22:01 | CARD ---
APPROVED REPORT EKG Measurement Heart [id number] <Conclusion> Poor data quality, interpretation may be adversely affected Normal sinus rhythm Possible Left atrial enlargement Right bundle branch block Abnormal ECG
[2017-01-02] MEDS: Piperacillin/Tazobact 2.25gm 2.25 GM/100 ML BAG IVPB SCH (22:04)
[2017-01-02 23:06] LABS: TROPONIN I 0.03 ng/mL
[2017-01-02] MEDS ORDERED: Latanoprost 2.5 ml Opht Soln OD SCH (23:39)
--- NOTE | 2017-01-03 02:17 | CON ---
CARDIOLOGY CONSULTATION DATE: 01/02/2017 REASON FOR CONSULTATION: Cardiac evaluation, admitted with nausea, vomiting during the dialysis. BRIEF CLINICAL HISTORY: This is a 71-year-old female with past medical history of end-stage renal disease, on dialysis; hypertension; anemia; chronic COPD, was in dialysis in [facility] twice a week, came few months ago to [facility] and was started dialysis. Today, the patient was in dialysis, started vomiting. Denies any chest pain. Nurses also report some drop in blood pressure, but no chest pain, no shortness of breath, no palpitation. PAST MEDICAL HISTORY: Significant for end-stage renal disease, was in dialysis in [facility] three times a week, then switched recently to twice a week. Recently admitted to [place] and had a V/Q scan was done with a low probability. Also, the patient had echocardiography in [place] that showed ejection fraction 65%-70%, [id number] pulmonary hypertension. Previous cardiac workup as follows, the patient had a stress test on 10/18/2016, that shows essentially normal myocardial perfusion study Lexiscan ejection fraction of 61%. The patient had an echocardiography in [place] that was essentially normal with ejection fraction of 65%-70%, pulmonary hypertension reported. EKG, not available in the chart, but previous admission EKG shows no signs of right bundle-branch block. This is as per HPI. CURRENT MEDICATIONS: The patient is taking at home, timolol maleate one drop to both eyes, Lasix 80 mg daily, Pepcid 20 mg,daily, calcium carbonate, aspirin, famotidine, B complex, atorvastatin, amlodipine. ALLERGIES: ALLERGY TO PAPER TAPE AND ALLERGY TO TEGADERM DRESSING. REVIEW OF SYSTEMS: As per HPI. PHYSICAL EXAMINATION: VITAL SIGNS: As follows; temperature afebrile, heart rate 94, and blood pressure 132/89. HEENT: PERRLA. Extraocular muscles intact. NECK: Supple. No carotid bruit or thyromegaly. CHEST: Clear to auscultation. HEART: S1 and S2 regular. ABDOMEN: Soft. EXTREMITIES: Clubbing and cyanosis negative. LABORATORY DATA: Blood workup as follows, WBC 9.8, hemoglobin 12.8, hematocrit 36.3, and platelet count 126. Chemistry shows sodium 133, potassium 4.0, chloride 94, carbon dioxide of 28, anion gap of 15, BUN 18, and creatinine 3.3. IMPRESSION: Nausea; vomiting; history of end-stage renal disease, on dialysis for three and a half years, used to be three times a day in [facility] before that twice, now he is having three times dialysis; hypertension; diabetes; hyperlipidemia. Previous cardiac workup is negative. The patient had V/Q scan in October that was negative. History of stress test here on 10/18/2016, essentially negative. Echocardiogram shows preserved left ventricular function, ejection fraction of . Admitted with nausea and vomiting. Denies any chest pain. Denies any palpitation. No syncope or loss of consciousness. RECOMMENDATION: Due to orthostatic hypotension, lipid profile, TSH and hemoglobin A1c. Further recommendations depend upon hospital course. We will follow with you. Thank you Dr. Kelly for providing us the opportunity in taking care of Tia Mehta. Sarah Smith MD
[2017-01-03 03:10] LABS: URINE BILIRUBIN NEGATIVE (NEGATIVE); URINE BLOOD TRACE-INTACT (NEGATIVE); URINE GLUCOSE (UA) 100 mg/dL (NEGATIVE); URINE KETONE NEGATIVE (NEGATIVE); URINE LEUKOCYTE ESTERASE TRACE Leu/uL (NEGATIVE); URINE PROTEIN 100 mg/dL (<30 mg/dL); URINE UROBILINOGEN 0.2 E.U./dL (<1 E.U./dL)
[2017-01-03 03:16] LABS: URINE APPEARANCE SL CLOUDY (CLEAR); URINE COLOR YELLOW (YELLOW)
[2017-01-03 03:25] LABS: URINE BACTERIA RARE (NEG); URINE EPITHELIAL CELLS 0 - 2 /hpf (0-5); URINE RBC 0 - 2 /hpf (0-2)
[2017-01-03] MEDS: Piperacillin/Tazobact 2.25gm 2.25 GM/100 ML BAG IVPB SCH (04:03)
[2017-01-03 06:25] LABS: HEMATOCRIT 32.6 % (36.0-48.0); MEAN CELL VOLUME 90.1 fl (80.0-105.0); MEAN CORPUSCULAR HEMOGLOBIN 29.6 pg (25.0-35.0); MEAN CORPUSCULAR HGB CONC 32.8 g/dl (31.0-37.0); MEAN PLATELET VOLUME 10.4 fl (7.0-11.0); RED CELL DISTRIBUTION WIDTH 14.6 % (11.5-14.5); WHITE BLOOD COUNT 6.9 10^3/ul (4.5-11.0)
[2017-01-03 06:53] LABS: ALB/GLOB RATIO 1.4 (1.1-1.8); BILIRUBIN,TOTAL 0.7 mg/dL (0.2-1.3); CALCIUM 8.4 mg/dL (8.4-10.5); MAGNESIUM 2.1 mg/dL (1.7-2.2); PHOSPHOROUS 3.6 mg/dL (2.5-4.5); POTASSIUM 4.5 mmol/L (3.6-5.0); TOTAL PROTEIN 6.1 g/dL (5.8-8.3)
[2017-01-03] MEDS ORDERED: levoFLOXacin 250 mg in D5W 250 MG/50 ML BAG IVPB SCH (08:45)
--- NOTE | 2017-01-03 13:09 | CP.PCM.PN ---
<MOSES SILVA - Last Filed: 01/03/17 13:05> Subjective - Date & Time of Evaluation Date of Evaluation: 01/03/17 Time of Evaluation: 13:05 - Subjective Subjective: Medicine Progress Note: Pt seen and examined at bedside. Pt denied any acute overnight. Pt denied any further episodes of nausea and emesis. Pt denied CP, SOB, abdominal pain, constipation, diarrhea, CAMPBELL, or dizziness. Objective - Vital Signs/Intake and Output Vital Signs (last 24 hours): Temp Pulse Resp BP Pulse Ox 98.7 F 61 18 165/65 H 95 01/03/17 08:49 01/03/17 09:33 01/03/17 08:49 01/03/17 09:33 01/03/17 08:49 Intake and Output: 01/03/17 01/03/17 06:59 18:59 Intake Total 300 Balance 300 - Medications Medications: Current Medications Albuterol Sulfate (Albuterol 0.083% Inhal Haley (2.5 Mg/3 Ml) Ud) 2.5 mg IH [id number] PRN PRN Reason: Wheezing Amlodipine Besylate (Norvasc) 5 mg PO DAILY [facility] Last Admin: 01/03/17 09:33 Dose: 5 mg Aspirin (Aspirin Chewable) 81 mg PO DAILY [facility] Last Admin: 01/03/17 09:36 Dose: 81 mg Atorvastatin Calcium (Lipitor) 20 mg PO HS [facility] Last Admin: 01/02/17 21:33 Dose: 20 mg Calcium Carbonate (Oscal) 500 mg PO TID [facility] Last Admin: 01/03/17 09:29 Dose: 500 mg Clopidogrel Bisulfate (Plavix) 75 mg PO DAILY [facility] Last Admin: 01/03/17 09:34 Dose: 75 mg Famotidine (Pepcid) 20 mg PO BID [facility] Last Admin: 01/03/17 09:33 Dose: 20 mg Furosemide (Lasix) 80 mg PO BID [facility] Last Admin: 01/03/17 09:32 Dose: 80 mg Heparin Sodium (Porcine) (Heparin) 5,000 units SC Q8 JOSUE PRN Reason: Protocol Last Admin: 01/03/17 05:50 Dose: 5,000 units Levofloxacin/Dextrose (Levaquin 250mg) 250 mg in 50 mls @ 100 mls/hr IVPB Q48H [facility] Last Admin: 01/03/17 09:39 Dose: 100 mls/hr Latanoprost (Xalatan Opht) 1 ml OD HS [facility] Non-Formulary Medication (Dionisio) 1 drop OD TID [facility] Timolol Maleate (Timoptic 0.5% Ophth Soln) 1 drop OD BID [facility] Last Admin: 01/03/17 09:35 Dose: 1 drop - Labs Labs: 01/03/17 06:00 01/03/17 06:00 - Constitutional Appears: No Acute Distress - Head Exam Head Exam: ATRAUMATIC, NORMOCEPHALIC - Eye Exam Eye Exam: EOMI, Normal appearance, PERRL Pupil Exam: PERRL - ENT Exam ENT Exam: Mucous Membranes Moist - Neck Exam Neck Exam: Full ROM, Normal Inspection - Respiratory Exam Respiratory Exam: Clear to Ausculation Bilateral, NORMAL BREATHING PATTERN - Cardiovascular Exam Cardiovascular Exam: REGULAR RHYTHM - GI/Abdominal Exam GI & Abdominal Exam: Soft, Normal Bowel Sounds. absent: Distended, Guarding, Tenderness, Mass, Rebound - Extremities Exam Extremities Exam: Normal Inspection. absent: Pedal Edema, Tenderness - Neurological Exam Neurological Exam: Alert, Awake, Oriented x3 - Psychiatric Exam Psychiatric exam: Normal Affect, Normal Mood - Skin Skin Exam: Dry, Intact, Normal Color, Warm - Additional Findings Additional findings: HD catheter site surrounding skin on right chest wall non-erythematous, not TTP , no discharge Assessment and Plan - Assessment and Plan (Free Text) Assessment: 71 yo female with PMH of asthma, HLD, ESRD on HD, HTN, and anemia presented with hypotension and vomiting at HD will be admitted for evaluation and treatment of fever and hypotension. Plan: 1. Fever, resolved - Will monitor clinically and workup for possible source of fever - CXR showed cardiomegaly, mild pulmonary venous congestion - RUQ US showed no active disease - No leukocytosis, currently afebrile - Procalcitonin 0.57 - UA negative - Blood cultures negative after 24 hours - F/u urine cultures - Levaquin 250 mg IVPB Q48H 2. Chest Pain r/o ACS - Cardiology consulted - Overnight: HR 46, 2 degree AV block Mobitz II, asymptomatic; cont to monitor - EKG showed NSR, RBBB (unchanged from last EKG 10/17/16) - Stress test on 10/18/16 negative for ischemia and chest pain - Troponin 0.02, 0.03, 0.03 - Lipid panel, TSH, A1C WNL 3. ESRD on HD - Nephro consulted - Cr 5.1 - HD MWF - Renal diet - Cont home medications 4. Hypertension - Normotensive on admission - Cont Norvasc 10 mg PO daily - Hold for SBP<100, DBP<60 5. Asthma - Ventolin HFA prn 6. HLD - Lipitor 20 mg daily GI/DVT PPx - Heparin - Pepcid Pt seen and discussed in detail with Dr. Teague. Mukul Silva, PGY1 <Sarah Teague - Last Filed: 01/03/17 16:18> Objective - Vital Signs/Intake and Output Vital Signs (last 24 hours): Temp Pulse Resp BP Pulse Ox 98.7 F 61 18 165/65 H 95 01/03/17 08:49 01/03/17 09:33 01/03/17 08:49 01/03/17 09:33 01/03/17 08:49 Intake and Output: 01/03/17 01/03/17 06:59 18:59 Intake Total 480 Balance 480 - Medications Medications: Current Medications Albuterol Sulfate (Albuterol 0.083% Inhal Haley (2.5 Mg/3 Ml) Ud) 2.5 mg IH [id number] PRN PRN Reason: Wheezing Amlodipine Besylate (Norvasc) 5 mg PO DAILY [facility] Last Admin: 01/03/17 09:33 Dose: 5 mg Aspirin (Aspirin Chewable) 81 mg PO DAILY [facility] Last Admin: 01/03/17 09:36 Dose: 81 mg Atorvastatin Calcium (Lipitor) 20 mg PO HS [facility] Last Admin: 01/02/17 21:33 Dose: 20 mg Calcium Carbonate (Oscal) 500 mg PO TID [facility] Last Admin: 01/03/17 15:30 Dose: 500 mg Clopidogrel Bisulfate (Plavix) 75 mg PO DAILY [facility] Last Admin: 01/03/17 09:34 Dose: 75 mg Famotidine (Pepcid) 20 mg PO BID [facility] Last Admin: 01/03/17 09:33 Dose: 20 mg Furosemide (Lasix) 80 mg PO BID [facility] Last Admin: 01/03/17 09:32 Dose: 80 mg Heparin Sodium (Porcine) (Heparin) 5,000 units SC Q8 JOSUE PRN Reason: Protocol Last Admin: 01/03/17 15:32 Dose: 5,000 units Levofloxacin/Dextrose (Levaquin 250mg) 250 mg in 50 mls @ 100 mls/hr IVPB Q48H [facility] Last Admin: 01/03/17 09:39 Dose: 100 mls/hr Latanoprost (Xalatan Opht) 1 ml OD HS [facility] Non-Formulary Medication (Dionisio) 1 drop OD TID [facility] Last Admin: 01/03/17 15:37 Dose: Not Given Timolol Maleate (Timoptic 0.5% Ophth Soln) 1 drop OD BID [facility] Last Admin: 01/03/17 09:35 Dose: 1 drop Attending/Attestation - Attestation I have personally seen and examined this patient.: Yes I have fully participated in the care of the patient.: Yes I have reviewed all pertinent clinical information, including history, physical exam and plan: Yes Notes (Text): 01/03/17 16:17 Patient was seen and examined with medical technologist. Agreed with resident assessment and plan. Management plan was discussed in detail with patient Education was provided.
--- NOTE | 2017-01-03 13:50 | PN ---
DATE: 01/03/2017 REASON FOR CONSULTATION: Cardiac evaluation, admitted with nausea during dialysis, and some chest discomfort. SUBJECTIVE: The patient denies any chest pain, shortness of breath, or any palpitation. Family is at the bedside. OBJECTIVE: GENERAL: Not in apparent distress. VITAL SIGNS: As follows; temperature afebrile, heart rate 81, and blood pressure 165/65. HEENT: PERRLA. Extraocular muscles intact. NECK: Supple. No carotid bruits or thyromegaly. CHEST: Clear to auscultation. HEART: S1 and S2 regular. ABDOMEN: Soft. EXTREMITIES: Clubbing and cyanosis negative. LABORATORY DATA: Blood workup as follows: WBC 6.9, hemoglobin , hematocrit 32.6, and platelet count 114. Chemistry shows sodium 134, potassium 4.5, chloride 90, carbon dioxide 37, anion gap of 14, BUN 30, and creatinine . Troponin 0.03 x3 negative. IMPRESSION: Nausea, vomiting, chest pain during vomiting, and end-stage renal disease, on dialysis. No evidence of acute coronary syndrome. Troponin remains flat. Denies any further episode of chest pain. History of a stress test and echo on previous admission dated 10/18/2016 essentially negative. Echocardiography with preserved left ventricular function, ejection fraction of 65% to 70% noted. RECOMMENDATIONS: Continue medical treatment. No further cardiac workup is planned. We will follow with you. Thank you Dr. Teague for providing us the opportunity in taking care of patient, Tia Mehta. Sarah Smith MD
[2017-01-03] MEDS: [UNRECOGNIZED DRUG - OTHER] OD SCH ×2 (15:36→15:37)
[2017-01-03 17:07] VITALS: RESP 20
[2017-01-04 06:10] LABS: HEMATOCRIT 33.3 % (36.0-48.0); MEAN CORPUSCULAR HEMOGLOBIN 29.7 pg (25.0-35.0); MEAN PLATELET VOLUME 10.5 fl (7.0-11.0); RED CELL DISTRIBUTION WIDTH 14.2 % (11.5-14.5)
[2017-01-04 06:41] LABS: ALB/GLOB RATIO 1.5 (1.1-1.8); BILIRUBIN,TOTAL 0.6 mg/dL (0.2-1.3); CALCIUM 9.4 mg/dL (8.4-10.5); POTASSIUM 4.7 mmol/L (3.6-5.0); TOTAL PROTEIN 6.6 g/dL (5.8-8.3)
--- NOTE | 2017-01-04 08:25 | CP.PCM.PN ---
Subjective - Date & Time of Evaluation Date of Evaluation: 01/04/17 Time of Evaluation: 08:19 - Subjective Subjective: 71 yo F w/ htn, asthma, hyperlipidemia, and ESRD on HD, admitted with dyspnea/ chest pain; Patient reporting some dyspnea today on HD; unable to achieve UF goal due to subsequent hypotension; Objective - Vital Signs/Intake and Output Vital Signs (last 24 hours): Temp Pulse Resp BP Pulse Ox 98.2 F 71 20 172/68 H 100 01/04/17 00:30 01/04/17 06:00 01/04/17 00:30 01/04/17 00:30 01/04/17 00:30 Intake and Output: 01/04/17 01/04/17 06:59 18:59 Intake Total 540 240 Balance 540 240 - Medications Medications: Current Medications Albuterol Sulfate (Albuterol 0.083% Inhal Haley (2.5 Mg/3 Ml) Ud) 2.5 mg IH [id number] PRN PRN Reason: Wheezing Amlodipine Besylate (Norvasc) 5 mg PO DAILY [facility] Last Admin: 01/03/17 09:33 Dose: 5 mg Aspirin (Aspirin Chewable) 81 mg PO DAILY [facility] Last Admin: 01/03/17 09:36 Dose: 81 mg Atorvastatin Calcium (Lipitor) 20 mg PO HS [facility] Last Admin: 01/03/17 21:59 Dose: 20 mg Calcium Carbonate (Oscal) 500 mg PO WM [facility] Clopidogrel Bisulfate (Plavix) 75 mg PO DAILY [facility] Last Admin: 01/03/17 09:34 Dose: 75 mg Famotidine (Pepcid) 20 mg PO BID [facility] Last Admin: 01/03/17 17:43 Dose: 20 mg Furosemide (Lasix) 80 mg PO BID [facility] Last Admin: 01/03/17 17:42 Dose: 80 mg Heparin Sodium (Porcine) (Heparin) 5,000 units SC Q8 JOSUE PRN Reason: Protocol Last Admin: 01/04/17 05:39 Dose: 5,000 units Levofloxacin/Dextrose (Levaquin 250mg) 250 mg in 50 mls @ 100 mls/hr IVPB Q48H [facility] Last Admin: 01/03/17 09:39 Dose: 100 mls/hr Latanoprost (Xalatan Opht) 1 ml OD HS [facility] Last Admin: 01/03/17 23:31 Dose: 1 ml Non-Formulary Medication (Dionisio) 1 drop OD TID [facility] Last Admin: 01/03/17 15:37 Dose: Not Given Timolol Maleate (Timoptic 0.5% Ophth Soln) 1 drop OD BID [facility] Last Admin: 01/03/17 23:57 Dose: 1 drop - Labs Labs: 01/04/17 05:35 01/04/17 05:35 - Constitutional Appears: Non-toxic, No Acute Distress - Eye Exam Eye Exam: Normal appearance. absent: Scleral icterus - ENT Exam ENT Exam: Mucous Membranes Moist - Respiratory Exam Respiratory Exam: Clear to Ausculation Bilateral. absent: Rales, Rhonchi, Wheezes, Respiratory Distress - Cardiovascular Exam Cardiovascular Exam: REGULAR RHYTHM, +S1, +S2 - GI/Abdominal Exam GI & Abdominal Exam: Soft. absent: Distended, Tenderness - Extremities Exam Additional comments: mild lower leg edema b/l; - Neurological Exam Neurological Exam: Alert, Awake - Psychiatric Exam Psychiatric exam: Normal Affect, Normal Mood - Skin Skin Exam: Warm. absent: Cyanosis Assessment and Plan (1) Dyspnea Assessment & Plan: Resolved; etiology unclear; cxr this morning not indicative of pulm vasc congestion; may benefit from more UF on HD but BP drops too low; on levaquin empirically, should dose 250 mg after each HD session (ie. MWF); Status: Acute (2) ESRD (end stage renal disease) Assessment & Plan: Stable electrolyte status; question of volume excess as patient does have elevated BP on non-HD days and mild lower ext edema; will increase HD time by 30 min and seek to challenge dry weight; Status: Acute (3) Hypertensive CKD, ESRD on dialysis Assessment & Plan: BP elevated; only on amlodipine 5 mg daily and lasix 80 mg bid; will challenge dry weight on HD today; will likely increase diuretic dose; Status: Acute (4) Anemia in ESRD (end-stage renal disease) Assessment & Plan: Hgb at goal for ESRD (10-11 g), continuing aranesp per protocol as outpatient; Status: Acute (5) Chronic kidney disease-mineral and bone disorder Assessment & Plan: Phos at goal on calcium carbonate 500 mg tid w/ meals as outpatient; continue same (ideally needs to be on non-Ca based binder but doesn't have insurance to cover it); not on calcitriol as outpatient as PTH oversuppressed; Status: Acute
[2017-01-04 08:35] VITALS: O2SAT 98
--- NOTE | 2017-01-04 08:46 | CON ---
NEPHROLOGY CONSULTATION HISTORY OF PRESENT ILLNESS: A 71-year-old female with past medical history of asthma, hyperlipidemia, hypertension and ESRD, on hemodialysis (at [facility]), presented to outpatient dialysis yesterday with new onset of shortness of breath that started the same morning. The patient subsequently sent to the ER for further evaluation and to rule out ACS. Nephrology being consulted for ESRD care. The patient seen by me yesterday during hemodialysis session, was reporting increased shortness of breath that started that morning and was reportedly fine the day before. The patient denied any chest pain or palpitations at the time; however, in the ER was reportedly complaining of chest pain. The patient also reported feeling of subjective fever and chills. During about 2-1/2 hours into her dialysis treatment, the patient vomited, the patient also had lower than usual blood pressure readings and therefore, nursing staff unable to achieve ultrafiltration goal. Blood pressure did shoot up sharply during the episode of vomiting. The patient was taken off dialysis about 1/2 hour early. This morning, the patient reports feeling much better per daughter who was with her. She was having some wheezing sounds earlier. The patient no longer with shortness of breath. Denies any chest pain or palpitations. Tolerated diet. PAST MEDICAL HISTORY; As above. PAST SOCIAL HISTORY: Denies smoking. REVIEW OF SYSTEMS: CONSTITUTIONAL: Subjective fever and chills. HEENT: No mention of any sore throat or nasal discharge. RESPIRATORY: As per HPI. CARDIOVASCULAR: As per HPI. GASTROINTESTINAL: As per HPI. GENITOURINARY: The patient still urinating significantly. MUSCULOSKELETAL: Denies any aches or pains. PSYCHIATRIC: Decreased sleep lately. PHYSICAL EXAMINATION: VITAL SIGNS: This afternoon, blood pressure 172/79, heart rate 75, respirations 20, temperature 97.9 and O2 sat 97% on room air. GENERAL: No distress, lying comfortably in bed, able to answer questions coherently. HEENT: Moist mucous membranes. Nonicteric. RESPIRATORY: Lungs with mild wheezing, otherwise no rales or rhonchi. CARDIOVASCULAR: S1 and S2 normal. No murmurs. No gallops. No rubs. GASTROINTESTINAL: Abdomen soft, nontender, nondistended. EXTREMITIES: Mild bilateral lower leg edema. PSYCHIATRIC: Normal mood, normal affect. SKIN: Warm. No cyanosis. LABORATORY DATA: This morning, 1. CBC: WBC 6.9, hemoglobin 10.7, hematocrit 30.6 and platelets 114. 2. Chemistry panel: Sodium 134, potassium 4.5, chloride 98, bicarb 27, BUN 38, creatinine 5.1, glucose 87, calcium 8.4, phosphorous 3.6 and albumin 3.5. 3. Blood cultures negative after 24 hours. 4. Chest x-ray, possibly mild pulmonary venous congestion. ASSESSMENT AND PLAN: 1. End-stage renal disease, on hemodialysis. The patient with relatively stable electrolyte and volume status, unclear why blood pressure was low yesterday. No bacteremia noted although the patient does have tunneled right IJ hemodialysis catheter which has not been changed in many months. We will continue with routine dialysis with next hemodialysis session tomorrow, goal ultrafiltration of 2 liters net on 2 K, 2.5 calcium, 34 bicarb, dialysate. 2. Dyspnea. The patient does have history of asthma and was on a steroid inhaler, however, appears that she was not using it correctly and was using it as a rescue inhaler, unclear whether the patient really needs steroid inhaler; therefore, I have instructed the patient yesterday to use her albuterol for rescue and based on how often she needs it, we will determine whether she really needs steroid inhaler. Otherwise, no significant volume access on exam or on chest x-ray to explain the patient's symptoms. Cannot rule out viral bronchitis. 3. Hypertension of end-stage renal disease, blood pressure uncontrolled. The patient on amlodipine 5 mg daily and Lasix 80 mg p.o. b.i.d. We will likely need to add Gerson Mcgee MD
[2017-01-04] MEDS: [UNRECOGNIZED DRUG - OTHER] OD SCH ×2 (10:37→10:41)
--- NOTE | 2017-01-04 11:15 | RAD ---
HISTORY: rule out CHF COMPARISON: 01/02/2017 FINDINGS: LUNGS: No active pulmonary disease. PLEURA: No significant pleural effusion identified, no pneumothorax apparent. CARDIOVASCULAR: Mild cardiomegaly OSSEOUS STRUCTURES: No significant abnormalities. VISUALIZED UPPER ABDOMEN: Normal. OTHER FINDINGS: Right internal jugular dialysis catheter in the right atrium. Unchanged IMPRESSION: No active disease.
--- NOTE | 2017-01-04 11:59 | CP.PCM.DIS ---
<MOSES SILVA - Last Filed: 01/04/17 11:44> Provider - Provider Date of Admission: 01/03/17 14:08 Attending physician: Sarah Teague MD Primary care physician: NO PRIMARY CARE PROVIDER Consults: Nephro: Everardo Cardio: Star Time Spent in preparation of Discharge (in minutes): 40 Hospital Course - Lab Results Lab Results: Most Recent Lab Values WBC 8.0 10^3/ul (4.5-11.0) 01/04/17 05:35 RBC 3.70 10^6/uL (3.5-6.1) 01/04/17 05:35 Hgb 11.0 g/dL (12.0-16.0) L 01/04/17 05:35 Hct 33.3 % (36.0-48.0) L 01/04/17 05:35 MCV 90.0 fl (80.0-105.0) 01/04/17 05:35 MCH 29.7 pg (25.0-35.0) 01/04/17 05:35 MCHC 33.0 g/dl (31.0-37.0) 01/04/17 05:35 RDW 14.2 % (11.5-14.5) 01/04/17 05:35 Plt Count 118 10^3/uL (120.0-450.0) L 01/04/17 05:35 MPV 10.5 fl (7.0-11.0) 01/04/17 05:35 Gran % 65.1 % (50.0-68.0) 01/02/17 11:15 Lymph % (Auto) 12.0 % (22.0-35.0) L 01/02/17 11:15 Caroline % (Auto) 7.3 % (1.0-6.0) H 01/02/17 11:15 Eos % (Auto) 15.4 % (1.5-5.0) H 01/02/17 11:15 Baso % (Auto) 0.2 % (0.0-3.0) 01/02/17 11:15 Gran # 6.00 (1.4-6.5) 01/02/17 11:15 Lymph # 1.1 (1.2-3.4) L 01/02/17 11:15 Caroline # 0.7 (0.1-0.6) H 01/02/17 11:15 Eos # 1.4 (0.0-0.7) H 01/02/17 11:15 Baso # 0.02 K/mm3 (0.0-2.0) 01/02/17 11:15 pO2 50 mm/Hg (30-55) 01/02/17 11:15 VBG pH 7.41 (7.32-7.43) 01/02/17 11:15 VBG pCO2 48.0 (40-60) 01/02/17 11:15 VBG HCO3 30.4 mmol/l (21-28) H 01/02/17 11:15 VBG Total CO2 31.9 mmol.L (22-28) H 01/02/17 11:15 VBG O2 Sat (Calc) 89.6 % (40-65) H 01/02/17 11:15 VBG Base Excess 4.8 mmol/L (0.0-2.0) H 01/02/17 11:15 VBG Potassium 4.0 mmol/L (3.6-5.2) 01/02/17 11:15 Sodium 131.0 mmol/L (132-148) L 01/02/17 11:15 Chloride 95.0 mmol/L (98-107) L 01/02/17 11:15 Glucose 126 mg/dl (65-105) H 01/02/17 11:15 Lactate 1.4 mmol/L (0.7-2.1) 01/02/17 11:15 FiO2 21.0 % 01/02/17 11:15 Sodium 136 mmol/L (132-148) 01/04/17 05:35 Potassium 4.7 mmol/L (3.6-5.0) 01/04/17 05:35 Chloride 101 mmol/L (98-107) 01/04/17 05:35 Carbon Dioxide 24 mmol/L (21-33) 01/04/17 05:35 Anion Gap 16 (10-20) 01/04/17 05:35 BUN 44 mg/dL (7-21) H 01/04/17 05:35 Creatinine 7.4 mg/dL (0.7-1.2) H* D 01/04/17 05:35 Est GFR ( Amer) 7 01/04/17 05:35 Est GFR (Non-Af Amer) 5 01/04/17 05:35 Random Glucose 89 mg/dL (70-110) 01/04/17 05:35 Hemoglobin A1c 5.4 % (4.2-6.5) 01/03/17 06:00 Calcium 9.4 mg/dL (8.4-10.5) 01/04/17 05:35 Phosphorus 3.6 mg/dL (2.5-4.5) 01/03/17 06:00 Magnesium 2.1 mg/dL (1.7-2.2) 01/03/17 06:00 Total Bilirubin 0.6 mg/dL (0.2-1.3) 01/04/17 05:35 AST 31 U/L (14-36) 01/04/17 05:35 ALT 27 U/L (7-56) 01/04/17 05:35 Alkaline Phosphatase 65 U/L (38-126) 01/04/17 05:35 Lactate Dehydrogenase 657 U/L (333-699) 01/02/17 22:40 Total Creatine Kinase 33 U/L (35-230) L 01/02/17 22:40 Troponin I 0.03 ng/mL 01/02/17 22:40 Total Protein 6.6 g/dL (5.8-8.3) 01/04/17 05:35 Albumin 3.9 g/dL (3.0-4.8) 01/04/17 05:35 Globulin 2.6 gm/dL 01/04/17 05:35 Albumin/Globulin Ratio 1.5 (1.1-1.8) 01/04/17 05:35 Triglycerides 104 mg/dL (35-160) 01/03/17 06:00 Cholesterol 136 mg/dL (130-200) 01/03/17 06:00 LDL Cholesterol Direct 52 mg/dL (0-129) 01/03/17 06:00 HDL Cholesterol 59 mg/dL (29-60) 01/03/17 06:00 Lipase 326 U/L (23-300) H 01/02/17 11:00 Procalcitonin 0.57 NG/ML (0.19-0.49) H 01/02/17 17:00 TSH 3rd Generation 0.56 mIU/mL (0.46-4.68) 01/03/17 06:00 Venous Blood Potassium 4.0 mmol/L (3.6-5.2) 01/02/17 11:15 Urine Color Yellow (YELLOW) 01/03/17 02:45 Urine Appearance Sl cloudy (CLEAR) 01/03/17 02:45 Urine pH 8.0 (4.7-8.0) 01/03/17 02:45 Ur Specific Branch 1.010 (1.005-1.035) 01/03/17 02:45 Urine Protein 100 mg/dL (<30 mg/dL) H 01/03/17 02:45 Urine Glucose (UA) 100 mg/dL (NEGATIVE) H 01/03/17 02:45 Urine Ketones Negative mg/dL (NEGATIVE) 01/03/17 02:45 Urine Blood Trace-intact (NEGATIVE) H 01/03/17 02:45 Urine Nitrate Negative (NEGATIVE) 01/03/17 02:45 Urine Bilirubin Negative (NEGATIVE) 01/03/17 02:45 Urine Urobilinogen 0.2 E.U./dL (<1 E.U./dL) 01/03/17 02:45 Ur Leukocyte Esterase Trace Liz/uL (NEGATIVE) H 01/03/17 02:45 Urine RBC 0 - 2 /hpf (0-2) 01/03/17 02:45 Urine WBC 1 - 3 /hpf (0-6) 01/03/17 02:45 Ur Epithelial Cells 0 - 2 /hpf (0-5) 01/03/17 02:45 Urine Bacteria Rare (NEG) 01/03/17 02:45 Influenza Typ A,B (EIA) Negative for flu a/b (NEGATIVE) 01/03/17 00:14 - Hospital Course Hospital Course: Pt is a 71 yo female with PMH of asthma, HLD, ESRD, HTN, and anemia presents to [facility] due to hypotension, nausea, and vomiting x3 during HD today. Pt had completed 20% of dialysis when symptoms began. Pt states that BP went as high as 200's and as low as 106. Pt also c/o of midsternal chest pain without radiation, SOB, alternating fever and chills. At that time patient was advised to proceed to ED. Pt has being going to dialysis for over 1 year on MWF. Pt denies any prior symptomatic episodes during dialysis. At time of examination, pt denies CP, SOB, tenderness at HD catheter site, abdominal pain, diarrhea, constipation, dysuria, CAMPBELL, dizziness, or fatigue. Labs were remarkable for Cr of 3.3. CXR showed cardiomegaly and mild pulmonary venous congestion. RUQ US showed no active disease. EKG showed NSR and RBBB, which was unchanged from previous EKG. Pt was admitted for evaluation and treatment of fever and hypotension. Pt was placed on IV abx. Further workup showed that procalcitonin was mildly elevated, blood cultures were negative, and UA was negative. Throughout hospital course, patient remained afebrile, normotensive, and had normal WBC. Cardiology was consulted for chest pain. Troponin were negative and lipids, TSH, and A1C were within normal limits. Nephro was consulted for ESRD and dialysis recommendations. Today, pt was seen and examined at bedside. Pt denied any acute overnight events. As work up for mild fever was negative and ACS had been ruled out, pt will be discharged following hemodialysis. Pt was given a prescription for levaquin. Pt was advised to follow up with her PMD and continue HD as instructed. Discharge Exam - Head Exam Head Exam: ATRAUMATIC, NORMOCEPHALIC - Eye Exam Eye Exam: EOMI, PERRL - ENT Exam ENT Exam: Mucous Membranes Moist - Neck Exam Neck exam: Full Rom - Respiratory Exam Respiratory Exam: Clear to PA & Lateral. absent: Accessory Muscle Use, Rales, Rhonchi, Wheezes, Respiratory Distress, Stridor - Cardiovascular Exam Cardiovascular Exam: RRR, +S1, +S2. absent: Diastolic murmur, Gallop, Rubs, Systolic Murmur - GI/Abdominal Exam GI & Abdominal Exam: Soft. absent: Distended, Guarding, Rebound, Rigid, Tenderness - Extremities Exam Extremities exam: normal inspection - Back Exam Back exam: NORMAL INSPECTION - Neurological Exam Neurological exam: Alert, Oriented x3 - Psychiatric Exam Psychiatric exam: Normal Affect, Normal Mood - Skin Skin Exam: Dry, Intact, Normal Color, Warm Discharge Plan - Discharge Medications Prescriptions: Levofloxacin [Levaquin] 250 mg PO QOTHERDAY #3 tablet Walker [Rolling Walker] 1 dev XX PRN PRN #1 dev PRN Reason: gait dysfunction - Follow Up Plan Condition: STABLE Disposition: HOME/ ROUTINE Instructions: Fever in Adults (GEN), Near Syncope (ED) Additional Instructions: 1. Follow up with PMD within 1 week 2. Follow up with wind instrument repairer in 1 week 3. Resume hemodialysis as scheduled 4. Take Levaquin as prescribed 5. Resume home medications as prescribed 6. Return to ED if symptoms worsen Referrals: Gerson Mcgee MD [Staff Provider] - PCP,JULIETTE [Primary Care Provider] - <Sarah Teague - Last Filed: 01/05/17 13:23> Provider - Provider Date of Admission: 01/03/17 14:08 Attending physician: Sarah Teague MD Primary care physician: JULIETTE PRIMARY CARE PROVIDER Hospital Course - Lab Results Lab Results: Most Recent Lab Values WBC 8.0 10^3/ul (4.5-11.0) 01/04/17 05:35 RBC 3.70 10^6/uL (3.5-6.1) 01/04/17 05:35 Hgb 11.0 g/dL (12.0-16.0) L 01/04/17 05:35 Hct 33.3 % (36.0-48.0) L 01/04/17 05:35 MCV 90.0 fl (80.0-105.0) 01/04/17 05:35 MCH 29.7 pg (25.0-35.0) 01/04/17 05:35 MCHC 33.0 g/dl (31.0-37.0) 01/04/17 05:35 RDW 14.2 % (11.5-14.5) 01/04/17 05:35 Plt Count 118 10^3/uL (120.0-450.0) L 01/04/17 05:35 MPV 10.5 fl (7.0-11.0) 01/04/17 05:35 Gran % 65.1 % (50.0-68.0) 01/02/17 11:15 Lymph % (Auto) 12.0 % (22.0-35.0) L 01/02/17 11:15 Caroline % (Auto) 7.3 % (1.0-6.0) H 01/02/17 11:15 Eos % (Auto) 15.4 % (1.5-5.0) H 01/02/17 11:15 Baso % (Auto) 0.2 % (0.0-3.0) 01/02/17 11:15 Gran # 6.00 (1.4-6.5) 01/02/17 11:15 Lymph # 1.1 (1.2-3.4) L 01/02/17 11:15 Caroline # 0.7 (0.1-0.6) H 01/02/17 11:15 Eos # 1.4 (0.0-0.7) H 01/02/17 11:15 Baso # 0.02 K/mm3 (0.0-2.0) 01/02/17 11:15 pO2 50 mm/Hg (30-55) 01/02/17 11:15 VBG pH 7.41 (7.32-7.43) 01/02/17 11:15 VBG pCO2 48.0 (40-60) 01/02/17 11:15 VBG HCO3 30.4 mmol/l (21-28) H 01/02/17 11:15 VBG Total CO2 31.9 mmol.L (22-28) H 01/02/17 11:15 VBG O2 Sat (Calc) 89.6 % (40-65) H 01/02/17 11:15 VBG Base Excess 4.8 mmol/L (0.0-2.0) H 01/02/17 11:15 VBG Potassium 4.0 mmol/L (3.6-5.2) 01/02/17 11:15 Sodium 131.0 mmol/L (132-148) L 01/02/17 11:15 Chloride 95.0 mmol/L (98-107) L 01/02/17 11:15 Glucose 126 mg/dl (65-105) H 01/02/17 11:15 Lactate 1.4 mmol/L (0.7-2.1) 01/02/17 11:15 FiO2 21.0 % 01/02/17 11:15 Sodium 136 mmol/L (132-148) 01/04/17 05:35 Potassium 4.7 mmol/L (3.6-5.0) 01/04/17 05:35 Chloride 101 mmol/L (98-107) 01/04/17 05:35 Carbon Dioxide 24 mmol/L (21-33) 01/04/17 05:35 Anion Gap 16 (10-20) 01/04/17 05:35 BUN 44 mg/dL (7-21) H 01/04/17 05:35 Creatinine 7.4 mg/dL (0.7-1.2) H* D 01/04/17 05:35 Est GFR ( Amer) 7 01/04/17 05:35 Est GFR (Non-Af Amer) 5 01/04/17 05:35 POC Glucose (mg/dL) 162 mg/dL (65-110) H 01/04/17 14:44 Random Glucose 89 mg/dL (70-110) 01/04/17 05:35 Hemoglobin A1c 5.4 % (4.2-6.5) 01/03/17 06:00 Calcium 9.4 mg/dL (8.4-10.5) 01/04/17 05:35 Phosphorus 3.6 mg/dL (2.5-4.5) 01/03/17 06:00 Magnesium 2.1 mg/dL (1.7-2.2) 01/03/17 06:00 Total Bilirubin 0.6 mg/dL (0.2-1.3) 01/04/17 05:35 AST 31 U/L (14-36) 01/04/17 05:35 ALT 27 U/L (7-56) 01/04/17 05:35 Alkaline Phosphatase 65 U/L (38-126) 01/04/17 05:35 Lactate Dehydrogenase 657 U/L (333-699) 01/02/17 22:40 Total Creatine Kinase 33 U/L (35-230) L 01/02/17 22:40 Troponin I 0.03 ng/mL 01/02/17 22:40 Total Protein 6.6 g/dL (5.8-8.3) 01/04/17 05:35 Albumin 3.9 g/dL (3.0-4.8) 01/04/17 05:35 Globulin 2.6 gm/dL 01/04/17 05:35 Albumin/Globulin Ratio 1.5 (1.1-1.8) 01/04/17 05:35 Triglycerides 104 mg/dL (35-160) 01/03/17 06:00 Cholesterol 136 mg/dL (130-200) 01/03/17 06:00 LDL Cholesterol Direct 52 mg/dL (0-129) 01/03/17 06:00 HDL Cholesterol 59 mg/dL (29-60) 01/03/17 06:00 Lipase 326 U/L (23-300) H 01/02/17 11:00 Procalcitonin 0.57 NG/ML (0.19-0.49) H 01/02/17 17:00 TSH 3rd Generation 0.56 mIU/mL (0.46-4.68) 01/03/17 06:00 Venous Blood Potassium 4.0 mmol/L (3.6-5.2) 01/02/17 11:15 Urine Color Yellow (YELLOW) 01/03/17 02:45 Urine Appearance Sl cloudy (CLEAR) 01/03/17 02:45 Urine pH 8.0 (4.7-8.0) 01/03/17 02:45 Ur Specific Branch 1.010 (1.005-1.035) 01/03/17 02:45 Urine Protein 100 mg/dL (<30 mg/dL) H 01/03/17 02:45 Urine Glucose (UA) 100 mg/dL (NEGATIVE) H 01/03/17 02:45 Urine Ketones Negative mg/dL (NEGATIVE) 01/03/17 02:45 Urine Blood Trace-intact (NEGATIVE) H 01/03/17 02:45 Urine Nitrate Negative (NEGATIVE) 01/03/17 02:45 Urine Bilirubin Negative (NEGATIVE) 01/03/17 02:45 Urine Urobilinogen 0.2 E.U./dL (<1 E.U./dL) 01/03/17 02:45 Ur Leukocyte Esterase Trace Liz/uL (NEGATIVE) H 01/03/17 02:45 Urine RBC 0 - 2 /hpf (0-2) 01/03/17 02:45 Urine WBC 1 - 3 /hpf (0-6) 01/03/17 02:45 Ur Epithelial Cells 0 - 2 /hpf (0-5) 01/03/17 02:45 Urine Bacteria Rare (NEG) 01/03/17 02:45 Influenza Typ A,B (EIA) Negative for flu a/b (NEGATIVE) 01/03/17 00:14 Attending/Attestation - Attestation I have personally seen and examined this patient.: Yes I have fully participated in the care of the patient.: Yes I have reviewed all pertinent clinical information, including history, physical exam and plan: Yes Notes (Text): 01/05/17 13:19 Patient was seen and examined with medical device sales consultant. Agreed with resident assessment and plan. 71 yo female with PMH of asthma, HLD, ESRD, HTN, and anemia was admitted to [facility] due to episode of hypotension, nausea, and vomiting during hemodialysis.Patient hypotension was transient, was already resolved in ER.She was having low grade fever , bloodc ultures were drawn and was started on IV antibiotics.Chest X ray was negative for Pneumonia, UA was negative for UTI.Right upper quadrant USG is negative for acute cholycysystitis.We will follow up blood cultures. Patient fever was resolved in less than 24 hour.Blood cultures were negative for any growth.Patient Procalcitonin level was mildly up.She will be discharged home on oral levofloxacin.She will follow up with PCP and Nephrology. Management plan was discussed in detail with patient and daughter in detail. Education was provided.
[2017-01-04 17:34] VITALS: BP 161/67; TEMP 99.4
[2017-01-04 19:44] VITALS: PULSE 75
--- NOTE | 2017-01-05 01:51 | PN ---
DATE: 01/04/2017 LOCATION: The patient in room 375, bed 2. REASON FOR CONSULTATION: Nausea during the dialysis, cardiac evaluation. SUBJECTIVE: The patient is lying flat in bed without chest pain, shortness of breath or palpitation. Daughter present at bedside. PHYSICAL EXAMINATION VITAL SIGNS: Blood pressure 161/67, respirations 20, pulse 76, temperature 99.4. HEENT: Head is normocephalic. Eyes: Pupils normal. Conjunctivae normal. NECK: JVP low. Carotids equal. THORAX: AP diameter normal. CHEST: The patient had dialysis catheter in right upper chest. LUNGS: Clear. CARDIOVASCULAR: S1 and S2. ABDOMEN: Soft, nontender. No organomegaly. EXTREMITIES: No clubbing. No cyanosis. LABORATORY DATA: WBC 8.0, hemoglobin 11.0, hematocrit 33.3, platelets 118. Sodium 136, potassium 4.7, BUN 44, creatinine 7.4, glucose 89. AST, ALT normal. Troponins negative. DIAGNOSES: Nausea; vomiting, chest pain during vomiting, end-stage renal failure, on dialysis. No evidence of acute coronary syndrome. Troponins negative. The patient is chest pain free at this current moment. Stress test, echo was done on 10/18/2016, the both were essentially negative. Echo showed preserved left ventricular function with ejection fraction 65% to 70%. RECOMMENDATIONS: The patient continued the present therapy. She will continue dialysis. Clinically, her cardiac status is stable. We will follow with you. Sarah Graves MD
== END 2017-01-04 18:59 | disposition home or self-care (01) | DRG 312 ==
LOC: ED 10:33 → ERH 12:28 → 3RSO 14:14 → OBSVTOIN 01-03 14:08
PROVIDERS: ADMIT Internal Medicine; ATTEND Internal Medicine
PROC: 5A1D70Z Performance of Urinary Filtration, Intermittent, Less than 6 Hours Per Day (ICD-10-PCS; principal; 2017-01-04)
DX: I95.3 Hypotension of hemodialysis (principal); I12.0 Hypertensive chronic kidney disease with stage 5 chronic kidney disease or end stage renal disease; E11.22 Type 2 diabetes mellitus with diabetic chronic kidney disease; N18.6 End stage renal disease; I27.20 Pulmonary hypertension, unspecified; J44.9 Chronic obstructive pulmonary disease, unspecified; E78.5 Hyperlipidemia, unspecified; R07.2 Precordial pain; I45.10 Unspecified right bundle-branch block; R11.2 Nausea with vomiting, unspecified; D63.1 Anemia in chronic kidney disease; R55 Syncope and collapse; Z79.82 Long term (current) use of aspirin; Z99.2 Dependence on renal dialysis; Z87.891 Personal history of nicotine dependence

== ENCOUNTER 2017-01-20 08:03 | Emergency (ER) | payer MEDICAID, OTHER ==
--- NOTE | 2017-01-20 08:26 | ED PDOC ---
Arrival/HPI - General Chief Complaint: Shortness Of Breath Time Seen by Provider: 01/20/17 08:24 Historian: Family (Daughter- in-law), Steward/Stewardess Second (Daughter- in-law) - History of Present Illness Narrative History of Present Illness (Text): 01/20/17 08:26 A 71 year old female, whose past medical history includes hypertension, hyperlipidemia, and ESRD, on dialysis M, W, F, presents to the emergency department for sudden onset shortness of breath. As per EMS, 20 minutes into dialysis the patient began to feel short of breath. She was started on Duoneb. EMS reports that patient was stridorous on examination with questionable mild expiratory wheezing. EMS states that there is no history of asthma. After 1 Duoneb, patient was started on nebulized saline and arrived to the emergency department. Patient reported to be 100% pulse oximetry on room air. Patient notes that she was a smoker for 30 years and quit 2 years ago. She states that she has a prescribed albuterol pump that she uses as needed. Patient currently denies fevers, chills, headache, dizziness, chest pain, dyspnea on exertion, cough, abdominal pain, nausea, vomiting, diarrhea, back pain, neck pain, urinary /bowel changes, or any other complaint. Renal: Dr. Deysi Mcgee Time/Duration: Prior to Arrival Symptom Onset: Sudden Symptom Course: Unchanged Activities at Onset: Rest, Light Context: Other (During Dialysis) Past Medical History - Provider Review Nursing Documentation Reviewed: Yes - Infectious Disease Hx of Infectious Diseases: None - Cardiac Hx Hypertension: Yes Hx Peripheral Edema: Yes (+1 pitting edema feet to mid calf b/l) - HEENT Hx Cataracts: Yes (r eye) - Renal Hx Dialysis: Yes (MWF) Date of Last Dialysis Treatment: 01/20/17 - Hematological/Oncological Hx Anemia: Yes - Integumentary Other/Comment: bruises easily - Musculoskeletal/Rheumatological Hx Falls: No - Psychiatric Hx Substance Use: No - Surgical History Other/Comment: R chest [place] - Anesthesia Hx Anesthesia: Yes Hx Anesthesia Reactions: No Hx Malignant Hyperthermia: No Family/Social History - Physician Review Nursing Documentation Reviewed: Yes Family/Social History: No Known Family HX Smoking Status: Former Smoker Hx Alcohol Use: No Hx Substance Use: No Allergies/Home Meds Allergies/Adverse Reactions: Allergies paper tape Adverse Reaction (Uncoded 01/20/17 08:15) RASH tegaderm dressing Adverse Reaction (Uncoded 01/20/17 08:15) RASH Home Medications: Home Meds Medication Instructions Recorded Confirmed Atorvastatin [Lipitor] 20 mg PO HS 10/17/16 01/20/17 amLODIPine [Norvasc] 5 mg PO DAILY 10/17/16 01/20/17 Aspirin [Aspirin Chewable] 81 mg PO DAILY 01/02/17 01/20/17 Calcium Carbonate [Oscal] 500 mg PO TID 01/02/17 01/20/17 Furosemide [Lasix] 80 mg PO BID 01/02/17 01/20/17 Timolol [Betimol] 1 drop RIGHTEYE BID 01/02/17 01/20/17 Vitamin B Complex [B Complex] 1 each PO DAILY 01/02/17 01/20/17 Travatan Z 1 drop OD HS 01/20/17 01/20/17 Review of Systems - Physician Review All systems were reviewed & negative as marked: Yes - Review of Systems Cardiovascular: absent: Chest Pain Gastrointestinal: absent: Abdominal Pain Physical Exam - Physical Exam Narrative Physical Exam (Text): 01/20/17 08:44 Constitutional: No acute distress. Head: Normocephalic. Atraumatic. Eyes: PERRL. ENT: Moist mucous membranes. Neck: Supple. Positive JVD. Cardiovascular: Regular rate. No S3. Chest: No tenderness. Respiratory: Clear to auscultation bilaterally. No wheezes or stridor. GI: Soft. Nontender. Nondistended. No abdominal Tenderness. Pelvis: No hip tenderness. Back: No CVA tenderness. Musculoskeletal: No tenderness or swelling of extremities. No leg swelling. Skin: No rash. Neurologic: Alert, no focal deficit. Vital Signs Reviewed: Yes Vital Signs Temp Pulse Resp BP Pulse Ox 01/20/17 14:24 98 F 76 18 139/89 99 01/20/17 14:00 98.4 F 76 18 136/89 99 01/20/17 11:00 74 18 139/88 99 01/20/17 09:33 18 01/20/17 08:15 98.1 F 77 16 114/75 98 Temperature: Afebrile Blood Pressure: Normal Pulse: Regular Respiratory Rate: Normal Appearance: Positive for: Well-Appearing, Non-Toxic, Comfortable Pain Distress: None Mental Status: Positive for: Alert and Oriented X 3 Medical Decision Making ED Course and Treatment: 01/20/17 08:46 Impression: A 71 year old female presents to the emergency department for sudden onset shortness of breath 20 minutes into her dialysis treatment. Plan: -- EKG -- Chest X-ray -- Urinalysis -- Urine Culture -- Labs -- Reassess and disposition Prior Visits: Notes and results from previous visits were reviewed. Patient was last seen in the emergency department on 10/17/16. Patient was seen in the emergency department for chest pain. Patient was hospitalized. Progress Notes: EKG: Ordered, reviewed, and independently interpreted the EKG. Rate : 73 BPM Rhythm : NSR Interpretation : RBBB. No ST elevations. Comparison : Unchanged from previous. CHEST X-RAY Dictator : Montana Braswell MD Report Date : 01/20/2017 10:25:05 IMPRESSION:No active disease. Evaluated by Dr. Mcgee, who arranged for dialysis today. Recommends discharge from ED and directly to dialysis. Requests CT Chest with and without contrast prior to discharge, states he will follow up the result. - Lab Interpretations Lab Results: 01/20/17 09:15 01/20/17 09:15 Lab Results 01/20/17 09:15: Sodium 135, Potassium 4.1, Chloride 96 L, Carbon Dioxide 28, Anion Gap 15, BUN 44 H, Creatinine 6.3 H, Est GFR ( Amer) 8, Est GFR (Non -Af Amer) 6, Random Glucose 119 H, Calcium 8.8, Total Bilirubin 0.7, AST 42 H D , ALT 34, Alkaline Phosphatase 72, NT-Pro-B Natriuret Pep 3920 H, Total Protein 7.6, Albumin 4.5, Globulin 3.2, Albumin/Globulin Ratio 1.4, Lipase 497 H 01/20/17 09:15: WBC 8.3, RBC 3.92, Hgb 11.9 L, Hct 35.2 L, MCV 89.8, MCH 30.4, MCHC 33.8, RDW 14.6 H, Plt Count 137, MPV 10.9, Gran % 50.2, Lymph % (Auto) 20.7 L, [place] % (Auto) 10.0 H, Eos % (Auto) 18.7 H, Baso % (Auto) 0.4, Gran # 4.19, Lymph # 1.7, [place] # 0.8 H, Eos # 1.6 H, Baso # 0.03 01/20/17 09:14: Urine Color Yellow, Urine Appearance Clear, Urine pH 7.0, Ur Specific [place] 1.015, Urine Protein 100 H, Urine Glucose (UA) 100 H, Urine Ketones Negative, Urine Blood Small H, Urine Nitrate Negative, Urine Bilirubin Negative, Urine Urobilinogen 0.2, Ur Leukocyte Esterase Small H, Urine RBC 5 - 10, Urine WBC 10 - 15, Ur Epithelial Cells 4 - 5, Amorphous Sediment Few, Urine Bacteria Mod, Urine Other Fiber I have reviewed the lab results: Yes - RAD Interpretation Radiology Orders: 01/20/17 08:24 CHEST PORTABLE [RAD] Stat 01/20/17 11:20 CHEST W/WO CONTRAST [CT] Stat - EKG Interpretation Interpreted by ED Physician: Yes Type: 12 lead EKG - Scribe Statement The provider has reviewed the documentation as recorded by the Tanneribe Estefanía Phan Provider Scribe Attestation: All medical record entries made by the Scribe were at my direction and personally dictated by me. I have reviewed the chart and agree that the record accurately reflects my personal performance of the history, physical exam, medical decision making, and the department course for this patient. I have also personally directed, reviewed, and agree with the discharge instructions and disposition. Disposition/Present on Arrival - Present on Arrival Any Indicators Present on Arrival: No History of DVT/PE: No History of Uncontrolled Diabetes: No Urinary Catheter: No History of Decub. Ulcer: No History Surgical Site Infection Following: None - Disposition Have Diagnosis and Disposition been Completed?: Yes Diagnosis: Dyspnea Disposition: HOME/ ROUTINE Disposition Time: 13:42 Patient Plan: Discharge Condition: STABLE Discharge Instructions (ExitCare): End Stage Kidney Disease (ED) Referrals: Gerson Mcgee MD [Primary Care Provider] - Follow up with primary Forms: DNage (Canadian)
[2017-01-20 09:27] LABS: URINE BILIRUBIN NEGATIVE (NEGATIVE); URINE BLOOD SMALL (NEGATIVE); URINE GLUCOSE (UA) 100 mg/dL (NEGATIVE); URINE KETONE NEGATIVE (NEGATIVE); URINE LEUKOCYTE ESTERASE SMALL Leu/uL (NEGATIVE); URINE PROTEIN 100 mg/dL (<30 mg/dL); URINE UROBILINOGEN 0.2 E.U./dL (<1 E.U./dL)
[2017-01-20 09:28] LABS: URINE APPEARANCE CLEAR (CLEAR); URINE COLOR YELLOW (YELLOW)
[2017-01-20 09:34] LABS: URINE AMORPHOUS SEDIMENT FEW; URINE BACTERIA MOD (NEG)
[2017-01-20 09:39] VITALS: RESP 18
[2017-01-20 09:48] LABS: BASO # 0.03 K/mm3 (0.0-2.0); BASO % 0.4 % (0.0-3.0); EOS # 1.6 (0.0-0.7); EOS % 18.7 % (1.5-5.0); GRAN # 4.19 (1.4-6.5); GRAN % 50.2 % (50.0-68.0); HEMATOCRIT 35.2 % (36.0-48.0); LYMPH # 1.7 (1.2-3.4); LYMPH % 20.7 % (22.0-35.0); MEAN CELL VOLUME 89.8 fl (80.0-105.0); MEAN CORPUSCULAR HEMOGLOBIN 30.4 pg (25.0-35.0); MEAN CORPUSCULAR HGB CONC 33.8 g/dl (31.0-37.0); MEAN PLATELET VOLUME 10.9 fl (7.0-11.0); MONO # 0.8 (0.1-0.6); RED CELL DISTRIBUTION WIDTH 14.6 % (11.5-14.5); WHITE BLOOD COUNT 8.3 10^3/ul (4.5-11.0)
[2017-01-20 09:53] LABS: ALB/GLOB RATIO 1.4 (1.1-1.8); BILIRUBIN,TOTAL 0.7 mg/dL (0.2-1.3); CALCIUM 8.8 mg/dL (8.4-10.5); POTASSIUM 4.1 mmol/L (3.6-5.0); TOTAL PROTEIN 7.6 g/dL (5.8-8.3)
--- NOTE | 2017-01-20 10:26 | RAD ---
HISTORY: dyspnea COMPARISON: 01/04/2017 FINDINGS: LUNGS: No active pulmonary disease. PLEURA: No significant pleural effusion identified, no pneumothorax apparent. CARDIOVASCULAR: Normal. OSSEOUS STRUCTURES: No significant abnormalities. VISUALIZED UPPER ABDOMEN: Normal. OTHER FINDINGS: There is a dialysis catheter that terminates in the inferior aspect of the right atrium. IMPRESSION: No active disease.
--- NOTE | 2017-01-20 11:23 | CP.PCM.CON ---
History of Present Illness - History of Present Illness History of Present Illness: Nephrology Consult Note- Dr. Mcgee's service CC: shortness of breath HPI: 71 year old female with past medical history significant for ESRD on HD, HTN, and questionable asthma presented today after complaints of dyspnea while undergoing dialysis. History was supplemented by daughter and [id number] who were present bedside. Per [id number], patient was experiencing some pain at the site of the dialysis catheter as well as low back pain while she was at home just before arriving to the dialysis center. At the actual center, patient was able to tolerate approx 20 minutes of dialysis before she started experiencing shortness of breath with witnessed tachypnea. Patient was also apparently hypotensive with a systolic blood pressure (SBP) around 94 however, this is patient's baseline SBP during other dialysis sessions. Patient's [id number] was present at the time and was informed that her mother in law ( the patient), would be sent to the emergency room for further evaluation. Before leaving the center, patient was administered duonebs as well as nebulized saline. Patient remained awake and alert throughout. When further questioned, patient was able to state that she occasionally has periods of dyspnea with some exertion or with ambulation up the stairs. The dyspnea however is not as pronounced as witnessed today on dialysis. Patient also has apparently had similar presentations of shortness of breath on other dialysis sessions as well. Family reported that patient does also become anxious while at the sessions as well. Patient denies nausea, vomiting, chest pain or palpitations. She admitted to headaches, lightheadedness, and nausea which have now resolved. History provided by family members. PMHx-as stated above PSHx- dialysis cath placement Fam Hx- denies Social Hx- Former unconventional tobacco use of appox 30 years. She used about 3 a day; denies alcohol or illicit drug use Meds- Vitamin B 12, Amlodipine, Eye drop medication, Lasix, Atorvastatin, Alprazolam, Calcium carbonate Allergies- Paper medical tape, tegaderm- both result in hives Nephro- Dr. Mcgee Review of Systems - Review of Systems Systems not reviewed;Unavailable: Language Barrier - Constitutional Constitutional: Headache - EENT Eyes: absent: Blurred Vision - Cardiovascular Cardiovascular: Dyspnea. absent: Chest Pain, Chest Pain at Rest - Respiratory Respiratory: Dyspnea - Gastrointestinal Gastrointestinal: absent: Nausea, Vomiting - Integumentary Integumentary: Swelling - Neurological Neurological: absent: Abnormal Hearing, Abnormal Movements Past Patient History - Infectious Disease Hx of Infectious Diseases: None - Past Social History Smoking Status: Former Smoker Alcohol: None Drugs: Denies Home Situation {Lives}: With Family - CARDIAC Hx Hypertension: Yes Hx Peripheral Edema: Yes (+1 pitting edema feet to mid calf b/l) - HEENT Hx Cataracts: Yes (r eye) - RENAL Hx Dialysis: Yes (MWF) Date of Last Dialysis Treatment: 01/20/17 - HEMATOLOGICAL/ONCOLOGICAL Hx Anemia: Yes - INTEGUMENTARY Other/Comment: bruises easily - MUSCULOSKELETAL/RHEUMATOLOGICAL Hx Falls: No - PSYCHIATRIC Hx Substance Use: No - SURGICAL HISTORY Other/Comment: R chest [place] - ANESTHESIA Hx Anesthesia: Yes Hx Anesthesia Reactions: No Hx Malignant Hyperthermia: No Meds Allergies/Adverse Reactions: Allergies Allergy/AdvReac Type Severity Reaction Status Date / Time paper tape AdvReac RASH Uncoded 01/20/17 08:15 tegaderm dressing AdvReac RASH Uncoded 01/20/17 08:15 Physical Exam - Constitutional Appears: Non-toxic, No Acute Distress - Head Exam Head Exam: ATRAUMATIC, NORMAL INSPECTION, NORMOCEPHALIC - Eye Exam Eye Exam: EOMI Pupil Exam: NORMAL ACCOMODATION - ENT Exam ENT Exam: Mucous Membranes Moist - Neck Exam Neck exam: Positive for: Full Rom - Respiratory Exam Respiratory Exam: Decreased Breath Sounds, NORMAL BREATHING PATTERN. absent: Wheezes - Cardiovascular Exam Cardiovascular Exam: REGULAR RHYTHM, JVD (trace), +S1, +S2. absent: Bradycardia , Tachycardia, Diastolic murmur, Irregular Rhythm, Systolic Murmur Additional comments: carotid bruit - GI/Abdominal Exam GI & Abdominal Exam: Distended, Soft. absent: Firm, Guarding, Tenderness - Extremities Exam Extremities exam: Positive for: full ROM, pedal edema Additional comments: 1+ pedal edema, trace Upper extremity edema - Back Exam Back exam: tenderness. absent: muscle spasm - Neurological Exam Neurological exam: Alert, Oriented x3 - Psychiatric Exam Psychiatric exam: Normal Affect, Normal Mood - Skin Skin Exam: Dry, Normal Color, Warm Additional comments: decreased skin turgor, swelling Results - Vital Signs Recent Vital Signs: Last Vital Signs Temp 98.1 F 01/20/17 08:15 Pulse 77 01/20/17 08:15 Resp 18 01/20/17 09:33 BP 114/75 01/20/17 08:15 Pulse Ox 98 01/20/17 08:15 - Labs Result Diagrams: 01/20/17 09:15 01/20/17 09:15 Labs: Laboratory Results - last 24 hr 01/20/17 01/20/17 01/20/17 09:14 09:15 09:15 WBC 8.3 RBC 3.92 Hgb 11.9 L Hct 35.2 L MCV 89.8 MCH 30.4 MCHC 33.8 RDW 14.6 H Plt Count 137 MPV 10.9 Gran % 50.2 Lymph % (Auto) 20.7 L [place] % (Auto) 10.0 H Eos % (Auto) 18.7 H Baso % (Auto) 0.4 Gran # 4.19 Lymph # 1.7 [place] # 0.8 H Eos # 1.6 H Baso # 0.03 Sodium 135 Potassium 4.1 Chloride 96 L Carbon Dioxide 28 Anion Gap 15 BUN 44 H Creatinine 6.3 H Est GFR ( Amer) 8 Est GFR (Non-Af Amer) 6 Random Glucose 119 H Calcium 8.8 Total Bilirubin 0.7 AST 42 H D ALT 34 Alkaline Phosphatase 72 NT-Pro-B Natriuret Pep 3920 H Total Protein 7.6 Albumin 4.5 Globulin 3.2 Albumin/Globulin Ratio 1.4 Lipase 497 H Urine Color Yellow Urine Appearance Clear Urine pH 7.0 Ur Specific [place] 1.015 Urine Protein 100 H Urine Glucose (UA) 100 H Urine Ketones Negative Urine Blood Small H Urine Nitrate Negative Urine Bilirubin Negative Urine Urobilinogen 0.2 Ur Leukocyte Esterase Small H Urine RBC 5 - 10 Urine WBC 10 - 15 Ur Epithelial Cells 4 - 5 Amorphous Sediment Few Urine Bacteria Mod Urine Other Fiber Assessment & Plan (1) Dyspnea Assessment and Plan: Patient with apparent dyspnea noticed on hemodialysis. This is not the first occurrence. Will need to monitor and assess during future HD sessions. Recommendations to rinse out dialyzer before next HD session. Patient to be pre-treated with Benadryl as well. Last echo from 10/14/16 confirms normal EF. Patient does have underlying pulmonary HTN EKG- Sinus rhythm with previously noted RBB CXR read as largely normal however there is questionable hilar adenopathy on visualization. In light of imaging findings, will order CT of chest. This would require outpatient followup Status: Resolved (2) ESRD (end stage renal disease) Assessment and Plan: On HD M,W,F Only tolerated approx 20 mins today before patient began experiencing dyspnea as well as hypotension. Symptoms appear to occur with dialysis suggesting a possible dialyzer reaction. Recommendations for pre-treating before HD and closely monitoring later today Patient to continue to follow up with [facility] outpatient. Status: Chronic (3) Asthma Assessment and Plan: Suspected asthma Patient states that she uses her rescue pump at least three times a week which is indicative of a mild persistent asthma. Patient is recommended to use her steroid inhaler as indicated daily at this time and resort to the rescue pump only as needed. Status: Chronic - Assessment and Plan (Free Text) Assessment: Case and management planning discussed with attending Dr. Mcgee
[2017-01-20 13:02] VITALS: O2SAT 99
[2017-01-20] MEDS ORDERED: Iodixanol 320 MG/ML 100 ML BOTTLE IV ONE (13:24)
--- NOTE | 2017-01-20 13:58 | CT ---
PROCEDURE: CT Chest with and without contrast HISTORY: episode of dyspnea, lung disease COMPARISON: None. TECHNIQUE: Contiguous axial images were obtained through the chest with intravenous contrast enhancement. Sagittal and coronal reconstructions were performed. IV contrast: 100 cc of Visipaque Radiation dose (DLP): 678 mGy-cm. This CT exam was performed using one or more of the following dose reduction techniques: Automated exposure control, adjustment of the mA and/or kV according to patient size, and/or use of iterative reconstruction technique. FINDINGS: LUNGS: Small calcified granulomas are seen bilaterally. The lungs are otherwise clear MEDIASTINUM: Unremarkable thoracic aorta. No aneurysm or dissection. Normal sized heart. Main pulmonary artery unremarkable. No vascular congestion. No lymphadenopathy. The tip of the dialysis catheter is low in the right atrium adjacent to the tricuspid valve. This can be seen on coronal image 29 series 601 PLEURA: No pleural fluid. No pneumothorax. BONES: No fracture. No destructive lesion. UPPER ABDOMEN: Grossly unremarkable. OTHER FINDINGS: None. IMPRESSION: No acute lung disease. Low position of the dialysis catheter with the tip near the tricuspid valve.
[2017-01-20 14:24] VITALS: PULSE 76
[2017-01-20 14:25] VITALS: BP 139/89; TEMP 98
--- NOTE | 2017-01-20 23:11 | CARD ---
APPROVED REPORT EKG Measurement Heart [id number] <Conclusion> Normal sinus rhythm Right bundle branch block Abnormal ECG
== END 2017-01-20 14:25 | disposition home or self-care (01) ==
LOC: ED 08:03
DX: R06.00 Dyspnea, unspecified (principal); I12.0 Hypertensive chronic kidney disease with stage 5 chronic kidney disease or end stage renal disease; N18.6 End stage renal disease; Z99.2 Dependence on renal dialysis; Z87.891 Personal history of nicotine dependence
CPT/HCPCS: 71010; 71270; 80053; 81001; 83690; 83880; 85025; 87086; 93005; 99284; Q9967

== ENCOUNTER 2017-09-08 12:07 | Day surgery (SDC) | payer OTHER ==
[2017-09-04 12:18] VITALS: BMI 23.1
[2017-09-08 12:44] LABS: BASO # 0.04 K/mm3 (0.0-2.0); BASO % 0.6 % (0.0-3.0); EOS # 1.1 (0.0-0.7); EOS % 17.2 % (1.5-5.0); GRAN # 3.44 (1.4-6.5); GRAN % 53.8 % (50.0-68.0); HEMOGLOBIN 10.3 g/dL (12.0-16.0); LYMPH # 1.5 (1.2-3.4); LYMPH % 22.8 % (22.0-35.0); MEAN CELL VOLUME 86.2 fl (80.0-105.0); MEAN CORPUSCULAR HEMOGLOBIN 28.4 pg (25.0-35.0); MEAN CORPUSCULAR HGB CONC 32.9 g/dl (31.0-37.0); MONO # 0.4 (0.1-0.6); MONO % 5.6 % (1.0-6.0); RBC 3.63 10^6/uL (3.5-6.1); RED CELL DISTRIBUTION WIDTH 15.1 % (11.5-14.5); WHITE BLOOD COUNT 6.4 10^3/ul (4.5-11.0)
[2017-09-08 12:53] LABS: INR 0.91 (0.93-1.08); PARTIAL THROMBOPLASTIN TIME 32.4 Seconds (25.1-36.5); PROTHROMBIN TIME 10.4 SECONDS (9.4-12.5)
[2017-09-08 13:13] LABS: CALCIUM 8.1 mg/dL (8.4-10.5)
[2017-09-08] MEDS ORDERED: Lidocaine 2% Inj (20ml) ONE (13:14)
[2017-09-08] MEDS ORDERED: Midazolam 2 MG/2 ML VIAL ONE ×2 (13:16→13:31)
[2017-09-08] MEDS ORDERED: Oxycodone/Acetaminophen 5/325 mg Tab PO PRN (14:03)
[2017-09-08 14:31] VITALS: O2SAT 100
[2017-09-08 14:34] VITALS: RESP 18
[2017-09-08 15:20] VITALS: TEMP 97.6
--- NOTE | 2017-09-08 16:03 | VASCULAR ---
PROCEDURE: Removal of tunneled right IJ dialysis catheter. CLINICAL HISTORY: End-stage renal disease. Malfunctioning tunneled right IJ dialysis catheter. Currently on peritoneal dialysis P. PHYSICIAN(S): Dario Manrique M.D. TECHNIQUE: The relative risks and indications of the procedure were explained to the patient and her family and consent obtained. The patient was placed supine on the arteriogram table and the tunneled right IJ dialysis catheter prepped and draped in the usual sterile fashion. Conscious sedation and monitoring were provided throughout the procedure by nurse. 1% Xylocaine was used to anesthetize skin and soft tissues along the tunnel. The tunnel and cuff were bluntly dissected. The catheter was removed and pressure applied at the venous insertion site. A single interrupted suture was placed at the exit site. The patient tolerated the procedure well. IMPRESSION: 1. Removal of the patient's tunneled right IJ dialysis catheter.
[2017-09-08 16:06] VITALS: BP 134/60; PULSE 74
== END 2017-09-08 15:50 | disposition home or self-care (01) ==
LOC: SDSVAS 12:07
PROVIDERS: ATTEND Radiology Vascular & Interventional Radiology
DX: T82.41XA Breakdown (mechanical) of vascular dialysis catheter, initial encounter (principal); Y83.8 Other surgical procedures as the cause of abnormal reaction of the patient, or of later complication, without mention of misadventure at the time of the procedure; I12.0 Hypertensive chronic kidney disease with stage 5 chronic kidney disease or end stage renal disease; N18.6 End stage renal disease; Z99.2 Dependence on renal dialysis
CPT/HCPCS: 36415; 36589; 80048; 85025; 85610; 85730; J1644; J2250; J2405; J3010